=== PATIENT | female | born 1955 | race Hispanic/Latino ===

== ENCOUNTER 2018-06-02 16:22 | Inpatient (IN) | payer OTHER, SELFPAY ==
[2018-06-02] MEDS ORDERED: NA CHLORIDE 0.9% 500 ML ONE (18:02)
[2018-06-02] MEDS ORDERED: PANTOPRAZOLE 40 MG INJ ONE (18:02)
[2018-06-02 18:07] LABS: ALT/SGPT 15 U/L (12-78); AST/SGOT 19 U/L (15-37); Alkaline Phosphatase 56 U/L (45-117); BUN Blood Urea Nitrogen 43 mg/dL (7-18); Bicarbonate 17 mmol/L (21-32); Bilirubin Direct < 0.1 mg/dL (0-0.2); Bilirubin Total 0.2 mg/dL (0.2-1.0); Glucose Level 142 mg/dL (74-106); Lipase 152 U/L (73-393); Potassium 5.2 mmol/L (3.5-5.1); Protein, Total 5.8 g/dL (6.4-8.2); Sodium Level 143 mmol/L (136-145)
[2018-06-02 19:16] LABS: Absolute Lymphocytes (CBC) 0.7 K/uL (0.7-4.9); Absolute Monocytes 0.8 K/uL (0.1-1.3); Absolute Neutrophil 4.7 K/uL (1.8-8.0); Basophils % 0.6 % (0-1.3); Eosinophils % 0.3 % (0-4.4); Lymphocytes % 11.6 % (15.3-44.8); MPV 7.9 fL (7.6-11.3); Monocytes % 12.3 % (3.3-12.3); RBC Red Blood Cell Count 1.28 M/uL (3.86-4.86)
--- NOTE | 2018-06-02 19:25 | RAD REPORT ---
EXAM DESCRIPTION: CT - Abdomen Pelvis Wo Contrast - 06/02/2018 6:58 pm CLINICAL HISTORY: Abdominal pain hematochezia COMPARISON: None TECHNIQUE: Computed axial tomography of the abdomen and pelvis was obtained. IV and oral contrast we re not requested. All CT scans are performed using dose optimization technique as appropriate and may include automated exposure control or mA/KV adjustment according to patient size. FINDINGS: The evaluation of solid organs, vessels and bowel is limited secondary to the lack of con trast administration. A small bilateral pleural effusions are present. Mild bibasilar lung atelectasis A small to moderate pericardial effusion is seen The liver, spleen, pancreas, adrenals and kidneys appear grossly normal. The appendix is normal. There is no evidence of diverticulitis. The wall of the rectum is thickened A small amount ascites is seen. Diffuse edema is present within the subcutaneous tissues. IMPRESSION: Small to moderate bilateral pleural effusions Small to moderate pericardial effusion Anasarca Rectal wall thickening may indicate proctitis. A mass can also have this appearance.
--- NOTE | 2018-06-02 19:26 | RAD REPORT ---
EXAM DESCRIPTION: Cassi Single View06/02/2018 5:55 pm CLINICAL HISTORY: Shortness of breath COMPARISON: none FINDINGS: Small bilateral pleural effusions are present. The cardiac silhouette is moderately enlar ged. Mild bibasilar lung atelectasis
[2018-06-02 19:30] LABS: Protime INR 1.13
[2018-06-02] MEDS ORDERED: NA CHLORIDE 0.9% 1,000 ML ONE (19:30)
--- NOTE | 2018-06-02 20:05 | ER ---
Nurse's Notes [facility] Name: Yumiko Beruemn Age: 62 yrs Sex: Female : 1955 Arrival Date: 06/02/2018 Time: 16:26 Bed 5 Private MD: Diagnosis: Gastrointestinal hemorrhage, unspecified;Acute kidney failure;Influenza due to identified novel influenza A virus Presentation: 06/02 16:34 Presenting complaint: Patient states: dark blood in stool with clots that began 1-2 aa5 weeks ago. Pt reports SOB and generalized weakness that began 1-2 weeks ago. Pt also reports cough that began 4 days ago. Pt appears pale. Transition of care: patient was not received from another setting of care. Onset of symptoms was April 2018. Risk Assessment: Do you want to hurt yourself or someone else? Patient reports no desire to harm self or others. Care prior to arrival: None. 16:34 Method Of Arrival: Wheelchair aa5 16:34 Acuity: RAFA 2 aa5 21:54 Initial Sepsis Screen: Does the patient meet any 2 criteria? RR > 20 per min. HR > 90 jd3 bpm. Yes Does the patient have a suspected source of infection? No. Patient's initial sepsis screen is negative. Historical: - Allergies: 16:37 No Known Allergies; aa5 - PMHx: 16:37 Diabetes - IDDM; Hypertension; Hyperlipidemia; aa5 - PSHx: 16:37 None; aa5 - Immunization history:: Pneumococcal vaccine is not up to date, Flu vaccine is not up to date. - Social history:: Smoking status: Patient/guardian denies using tobacco. - Ebola Screening: : No symptoms or risks identified at this time. Screenin:39 Abuse screen: Denies threats or abuse. Denies injuries from another. Nutritional aj screening: No deficits noted. Tuberculosis screening: No symptoms or risk factors identified. Fall Risk None identified. Assessment: 17:39 General: Appears in no apparent distress. comfortable, Behavior is calm, cooperative, aj appropriate for age. Pain: Denies pain. Neuro: Level of Consciousness is awake, alert, obeys commands, Oriented to person, place, time, situation. Respiratory: Airway is patent Respiratory effort is even, unlabored, Respiratory pattern is regular, symmetrical. Respiratory: Reports shortness of breath cough that is productive. GI: Abdomen is non-distended, obese. GI: Reports bloody stool. Derm: Skin is intact, is healthy with good turgor, Skin is pale. 19:28 Reassessment: Patient appears in no apparent distress at this time. No changes from jd3 previously documented assessment. Patient and/or family updated on plan of care and expected duration. Pain level reassessed. Patient is alert, oriented x 3, equal unlabored respirations, skin warm/dry/pink. 20:30 Reassessment: Patient appears in no apparent distress at this time. Patient and/or jd3 family updated on plan of care and expected duration. Pain level reassessed. Patient is alert, oriented x 3, equal unlabored respirations, skin warm/dry/pink. 21:10 Reassessment: blood transfusion started, see blood charting. jd3 21:52 Reassessment: Patient appears in no apparent distress at this time. Patient and/or jd3 family updated on plan of care and expected duration. Pain level reassessed. Patient is alert, oriented x 3, equal unlabored respirations, skin warm/dry/pink. 22:24 Reassessment: Patient appears in no apparent distress at this time. Patient and/or jd3 family updated on plan of care and expected duration. Pain level reassessed. Patient is alert, oriented x 3, equal unlabored respirations, skin warm/dry/pink. Vital Signs: 16:38 BP 147 / 67; Pulse 105; Resp 18 S; Temp 98.2(TE); Pulse Ox 98% on R/A; Weight 74.39 kg aa5 (R); Height 5 ft. 1 in. (154.94 cm) (R); Pain 0/10; 19:29 Pulse 105; Resp 23 S; Pulse Ox 98% on R/A; jd3 20:27 BP 139 / 54; Pulse 99; Resp 20; Pulse Ox 97% on R/A; mt 21:52 BP 188 / 86; Pulse 95; Resp 25 S; Temp 99.7(O); Pulse Ox 98% on R/A; jd3 16:38 Body Mass Index 30.99 (74.39 kg, 154.94 cm) aa5 ED Course: 16:26 Patient arrived in ED. rg4 16:34 Arm band placed on. aa5 16:37 Triage completed. aa5 16:40 [facility] Blackburn [facility]. pm1 16:40 Terrell Carter MD is Attending Physician. pm1 16:56 Radiology exam delayed due to lab results not completed at this time. (BUN/Creatinine). vm2 17:00 Emily Davis, RN is Primary Nurse. aj 17:26 Radiology exam delayed due to lab results not completed at this time. (BUN/Creatinine). vm2 17:38 Radiology exam delayed due to lab results not completed at this time. (BUN/Creatinine). vm2 17:39 Patient has correct armband on for positive identification. aj 17:39 Inserted saline lock: 20 gauge in right forearm, using aseptic technique. Blood aj collected. 17:56 Chest Single View XRAY In Process Unspecified. EDMS 17:59 EKG done, by client technical professional. reviewed by Irvin Blackburn NP. sm3 18:05 Radiology exam delayed due to lab results not completed at this time. (BUN/Creatinine). vm2 18:58 CT completed. Patient tolerated procedure well. Patient moved back from CT. vm2 18:58 Abdomen In Process Unspecified. EDMS 19:33 Primary Nurse role handed off by Emily Davis, YONG jd3 19:33 Manjinder Alejandre RN is Primary Nurse. jd3 20:04 Alvaro Jeffries MD is Hospitalizing Provider. pm1 21:54 No provider procedures requiring assistance completed. Patient admitted, IV remains in jd3 place. Administered Medications: 17:50 CANCELLED (Physician Discretion): ProTONIX 40 mg PO once pm1 17:55 Drug: NS 0.9% 500 ml Route: IV; Rate: bolus; Site: right forearm; bp 19:00 Follow up: Response: No adverse reaction; IV Status: Completed infusion jd3 17:55 Drug: ProTONIX 40 mg Route: IVP; Site: right forearm; bp 19:00 Follow up: Response: No adverse reaction jd3 19:28 Drug: NS 0.9% 1000 ml Route: IV; Rate: 150 ml/hr; Site: right forearm; jd3 21:55 Follow up: Response: No adverse reaction; IV Status: Order to discontinue infusion; jd3 infusion paused for blood administration. 20:57 Drug: Tylenol 1000 mg Route: PO; jd3 21:54 Follow up: Response: No adverse reaction jd3 Outcome: 20:05 Decision to Hospitalize by Provider. pm1 22:23 Admitted to ICU accompanied by nurse, accompanied by tech, via stretcher, room 1, on jd3 monitor, with chart, Report called to Donnell BEACH 22:23 Condition: stable 22:23 Instructed on the need for admit, Demonstrated understanding of instructions. 22:24 Patient left the ED. jd3 Signatures: Dispatcher [employer] EDMS Emily Davis RN RN Jewels Barry RN RN aa5 Irvin Blackburn NP CONTRACT NEGOTIATOR pm1 Marii Schmid rg4 Shavonne Sousa 2 Rosalinda Clark mt, Jonathon, RN RN jd3 Beau Balderas RN Mary Xie 3 Corrections: (The following items were deleted from the chart) 19:33 19:29 Pulse 111bpm; Resp 25bpm; Spontaneous; Pulse Ox 98% RA; jd3 jd3
--- NOTE | 2018-06-02 20:06 | EDPHYS ---
Physician Documentation [facility] Name: Yumiko Berumen Age: 62 yrs Sex: Female : 1955 Arrival Date: 06/02/2018 Time: 16:26 Bed 5 Private MD: ED Physician Terrell Carter HPI: 06/02 17:00 This 62 yrs old Female presents to ER via Wheelchair with complaints of Bloody pm1 Stools, Breathing Difficulty. 17:00 The patient presents to the emergency department with rectal bleeding, dark red blood pm1 with bowel movement 4 times per day for the past 2 weeks. Onset: The symptoms/episode began/occurred 2 week(s) ago. Abdominal pain: none is appreciated. Modifying factors: The symptoms are alleviated by nothing, the symptoms are aggravated by nothing. Associated signs and symptoms: Pertinent positives: fever, shortness of breath, cough, Pertinent negatives: chest pain. Severity of symptoms: in the emergency department the symptoms are worse. The patient has not experienced similar symptoms in the past. The patient has not recently seen a physician, the patient's primary care provider is Dr. Dr. Rivera. Historical: - Allergies: 16:37 No Known Allergies; aa5 - PMHx: 16:37 Diabetes - IDDM; Hypertension; Hyperlipidemia; aa5 - PSHx: 16:37 None; aa5 - Immunization history:: Pneumococcal vaccine is not up to date, Flu vaccine is not up to date. - Social history:: Smoking status: Patient/guardian denies using tobacco. - Ebola Screening: : No symptoms or risks identified at this time. ROS: 17:00 Constitutional: Negative for fever, chills, and weight loss, Eyes: Negative for injury, pm1 pain, redness, and discharge, ENT: Negative for injury, pain, and discharge, Neck: Negative for injury, pain, and swelling, Cardiovascular: Negative for chest pain, palpitations, and edema, Back: Negative for injury and pain. 17:00 : Negative for injury, bleeding, discharge, and swelling, MS/Extremity: Negative for injury and deformity, Skin: Negative for injury, rash, and discoloration, Neuro: Negative for headache, weakness, numbness, tingling, and seizure. 17:00 Respiratory: Positive for cough, shortness of breath, Negative for wheezing. 17:00 Abdomen/GI: Positive for black/tarry stool, rectal bleeding, Negative for abdominal pain, nausea, vomiting, and diarrhea. Exam: 18:31 Constitutional: This is a well developed, well nourished patient who is awake, alert, pm1 and in no acute distress. Head/Face: Normocephalic, atraumatic. ENT: Nares patent. No nasal discharge, no septal abnormalities noted. Tympanic membranes are normal and external auditory canals are clear. Oropharynx with no redness, swelling, or masses, exudates, or evidence of obstruction, uvula midline. Mucous membranes moist. Neck: Trachea midline, no thyromegaly or masses palpated, and no cervical lymphadenopathy. Supple, full range of motion without nuchal rigidity, or vertebral point tenderness. No Meningismus. Chest/axilla: Normal chest wall appearance and motion. Nontender with no deformity. No lesions are appreciated. Cardiovascular: Regular rate and rhythm with a normal S1 and S2. No gallops, murmurs, or rubs. Normal PMI, no JVD. No pulse deficits. Respiratory: Lungs have equal breath sounds bilaterally, clear to auscultation and percussion. No rales, rhonchi or wheezes noted. No increased work of breathing, no retractions or nasal flaring. 18:31 Back: No spinal tenderness. No costovertebral tenderness. Full range of motion. 18:31 MS/ Extremity: Pulses equal, no cyanosis. Neurovascular intact. Full, normal range of motion. 18:31 Eyes: Periorbital structures: appear normal, Pupils: no acute changes, Extraocular movements: no acute changes, Conjunctiva: pale, Sclera: no appreciated abnormality, no acute changes. 18:31 Abdomen/GI: Inspection: obese Bowel sounds: normal, in all quadrants, Palpation: abdomen is soft and non-tender, in all quadrants, Rectal exam: rectal tone normal, Stool: guaiac positive, maroon, hemorrhoid(s), are not appreciated, external, tenderness, is not appreciated, Emily BEACH. 18:31 Skin: Appearance: normal except for affected area, Color: pale. 18:31 Neuro: Orientation: is normal, Motor: is normal, moves all fours. Vital Signs: 16:38 BP 147 / 67; Pulse 105; Resp 18 S; Temp 98.2(TE); Pulse Ox 98% on R/A; Weight 74.39 kg aa5 (R); Height 5 ft. 1 in. (154.94 cm) (R); Pain 0/10; 19:29 Pulse 105; Resp 23 S; Pulse Ox 98% on R/A; jd3 20:27 BP 139 / 54; Pulse 99; Resp 20; Pulse Ox 97% on R/A; mt 21:52 BP 188 / 86; Pulse 95; Resp 25 S; Temp 99.7(O); Pulse Ox 98% on R/A; jd3 16:38 Body Mass Index 30.99 (74.39 kg, 154.94 cm) aa5 MDM: 16:40 Patient medically screened. pm1 19:50 Physician consultation: Alvaro Jeffries MD was called at 19:50, was contacted at 19:50, pm1 regarding admission, patient's condition, would like consultation with Dr. Dr. Miller. 19:50 Data reviewed: vital signs. Data interpreted: Pulse oximetry: on room air is 98 %. pm1 Interpretation: normal. 19:57 Physician consultation: Michele Miller MD was called at 19:57, was contacted at 19:57, pm1 regarding consult, patient's condition, and will see patient tomorrow, Was not able to talk to Dr. Miller. Discussed case with his PA Kaylynn who said that she will discuss the case with him and that he will see the patient tomorrow morning. . 06/02 16:52 Order name: Type And Screen pm1 06/02 16:52 Order name: Basic Metabolic Panel; Complete Time: 18:27 pm06/02 16:52 Order name: CBC with Diff; Complete Time: 19:30 pm06/02 16:52 Order name: Creatinine for Radiology; Complete Time: 18:27 pm1 06/02 16:52 Order name: Hepatic Function; Complete Time: 18:27 pm1 06/02 16:52 Order name: Lipase; Complete Time: 18:27 pm1 06/02 16:52 Order name: Protime (+inr); Complete Time: 19:52 pm1 06/02 16:52 Order name: Ptt, Activated; Complete Time: 19:52 pm1 06/02 17:26 Order name: Procalcitonin; Complete Time: 19:16 pm1 06/02 17:26 Order name: Lactate; Complete Time: 18:27 pm1 06/02 17:26 Order name: Blood Culture Adult (2) pm1 06/02 17:31 Order name: Occult Blood--Ancillary bd 06/02 17:32 Order name: Flu; Complete Time: 19:16 pm1 06/02 17:33 Order name: [place] Screen Profile; Complete Time: 19:52 pm1 06/02 16:52 Order name: IV Saline Lock; Complete Time: 17:49 pm1 06/02 16:52 Order name: Labs collected and sent; Complete Time: 17:49 pm1 06/02 16:52 Order name: Chest Single View XRAY; Complete Time: 19:30 pm1 06/02 16:52 Order name: EKG; Complete Time: 16:53 pm1 06/02 16:52 Order name: EKG - Nurse/Tech; Complete Time: 17:49 pm1 06/02 18:42 Order name: Abdomen ; Complete Time: 19:30 EDMS 06/02 19:08 Order name: ABO/RH no charge; Complete Time: 19:16 EDMS 06/02 20:00 Order name: ABO rpt EDMS 06/02 20:00 Order name: Packed RBCs (Additional Unit) EDMS 06/02 18:11 Order name: Labs - recollect needed; Complete Time: 19:07 bd Administered Medications: 17:50 CANCELLED (Physician Discretion): ProTONIX 40 mg PO once pm1 17:55 Drug: NS 0.9% 500 ml Route: IV; Rate: bolus; Site: right forearm; bp 19:00 Follow up: Response: No adverse reaction; IV Status: Completed infusion jd3 17:55 Drug: ProTONIX 40 mg Route: IVP; Site: right forearm; bp 19:00 Follow up: Response: No adverse reaction jd3 19:28 Drug: NS 0.9% 1000 ml Route: IV; Rate: 150 ml/hr; Site: right forearm; jd3 21:55 Follow up: Response: No adverse reaction; IV Status: Order to discontinue infusion; jd3 infusion paused for blood administration. 20:57 Drug: Tylenol 1000 mg Route: PO; jd3 21:54 Follow up: Response: No adverse reaction jd3 Disposition: 06/02/18 20:05 Hospitalization ordered by Alvaro Jeffries for Inpatient Admission. Preliminary diagnosis are Gastrointestinal hemorrhage, unspecified, Acute kidney failure, Influenza due to identified novel influenza A virus. - Bed requested for Intensive Care Unit. - Status is Inpatient Admission. jd3 - Condition is Stable. - Problem is new. - Symptoms have improved. UTI on Admission? No Addendum: 06/05/2018 07:18 Co-signature as Attending Physician, Terrell Carter MD. r n Signatures: Dispatcher [employer] [facility] Ana Luisa Rodriguez Terrell Carter MD MD rn Calderon, Jweels, RN RN aa5 Ree Schmid RN RN cg Irvin Blackburn, CUSTOM HOME INSTALLER CUSTOM HOME INSTALLER pm1 Manjinder Alejandre RN RN jd3 Beau Balderas RN RN bp Corrections: (The following items were deleted from the chart) 06/02 17:50 17:32 ProTONIX 40 mg PO once ordered. pm1 pm1 18:42 16:53 Abdomen Pelvis W Con+CT.RAD.BRZ ordered. [facility] EDMI 21:47 20:05 Hospitalization Ordered by Alvaro Jeffries MD for Inpatient Admission. Preliminary cg diagnosis is Gastrointestinal hemorrhage, unspecified; Acute kidney failure; Influenza due to identified novel influenza A virus. Bed requested for Intensive Care Unit. Status is Inpatient Admission. Condition is Stable. Problem is new. Symptoms have improved. UTI on Admission? No. pm1 22:24 21:47 06/02/2018 20:05 Hospitalization Ordered by Alvaro Jeffries MD for Inpatient jd3 Admission. Preliminary diagnosis is Gastrointestinal hemorrhage, unspecified; Acute kidney failure; Influenza due to identified novel influenza A virus. Bed requested for Intensive Care Unit. Status is Inpatient Admission. Condition is Stable. Problem is new. Symptoms have improved. UTI on Admission? No. cg
[2018-06-02] MEDS ORDERED: ACETAMINOPHEN 500 MG TAB ONE (21:05)
[2018-06-02] MEDS ORDERED: ONDANSETRON 4 MG/2 ML VIAL IV PRN (21:55)
[2018-06-02] MEDS ORDERED: ALBUTEROL 2.5 MG/3 ML NEB SOL NEB PRN (21:55)
[2018-06-02] MEDS ORDERED: ACETAMINOPHEN 500 MG TAB PO PRN (21:55)
[2018-06-02] MEDS ORDERED: IPRATROPIUM BROM 0.5MG/2.5ML NEB PRN (21:55)
[2018-06-02] MEDS ORDERED: SODIUM CHLORIDE 0.9% 10ML INJ IV PRN (21:55)
--- NOTE | 2018-06-02 22:57 | P.HP ---
Certification for Inpatient Patient admitted to: Inpatient With expected LOS: >2 Midnights Practitioner: I am a practitioner with admitting privileges, knowledge of patient current condition, hospital course, and medical plan of care. Services: Services provided to patient in accordance with Admission requirements found in Title 42 Section 412.3 of the Code of Federal Regulations Patient History Date of Service: 06/02/18 Reason for admission: GIB History of Present Illness: Ms Berumen is a 62 years old woman with history of Diabetes mellitus II, HTN, CKD , Dyslipidemia, who start about 3 month ago with progressive weakness. Since 2 weeks ago, she start with dry cough and SOB. She also noticed dark bloody stools mixed with clots. She denied fever, or chills. No nausea, vomiting or abdominal pain. Her daughter says that she was gradually becoming more pale in the last few days. Today, the patient start feeling dizzy and more lethargic. Also more SOB as well. Lab work remarkable for normal WBC count, Hgb 3.4, Creatinine 7.1, normal lactate but elevated procalcitonin. CT abd/pelvis remarkable for possible proctitis, and ascites. Also bilateral pleural effusion and mild to moderate pericardial effusion. Allergies No Known Allergies Allergy (Unverified 06/02/18 21:05) Home medications list reviewed: Yes - Past Medical/Surgical History Has patient received pneumonia vaccine in the past: No Diabetic: Yes -: IDDM -: HTN -: hyperlipidemia -: Hysterectomy - Family History Mother -: Hypertension, Kidney disease Father -: Diabetes, Cancer - Social History Smoking Status: Former smoker Alcohol use: No CD- Drugs: No Caffeine use: Yes Place of Residence: Home Review of Systems 10-point ROS is otherwise unremarkable Physical Examination - Vital Signs Temperature: 99.4 F Blood Pressure: 169/83 Pulse: 97 Respirations: 26 Pulse Ox (%): 94 - Physical Exam General: Alert, In no apparent distress, Other (pale) HEENT: Atraumatic, PERRLA, Mucous membr. moist/pink, EOMI, Sclerae nonicteric Neck: Supple, 2+ carotid pulse no bruit, No LAD, Without JVD or thyroid abnormality Respiratory: Diminished, Crackles/rales (bilateral crackles) Cardiovascular: Regular rate/rhythm, Normal S1 S2 Gastrointestinal: Normal bowel sounds, No tenderness Musculoskeletal: No tenderness Integumentary: No rashes Neurological: Normal speech, Normal strength at 5/5 x4 extr, Normal tone, Normal affect Lymphatics: No axilla or inguinal lymphadenopathy - Studies Laboratory Data (last 24 hrs) 06/02/18 19:04: PT 13.4 H, INR 1.13, APTT 27.3 06/02/18 19:04: WBC 6.2, Hgb 3.4 L*, Hct 11.0 L*, Plt Count 216 06/02/18 17:21: Creatinine 7.14 H* 06/02/18 17:21: Sodium 143, Potassium 5.2 H, BUN 43 H, Creatinine 7.10 H*, Glucose 142 H, Total Bilirubin 0.2, AST 19, ALT 15, Alkaline Phosphatase 56, Lipase 152 Microbiology Data (last 24 hrs): 06/02/18 18:15 Nasopharnyx Influenza Type A Antigen Screen - Final 06/02/18 18:15 Nasopharnyx Influenza Type B Antigen Screen - Final 06/02/18 17:31 Stool Occult Blood - Final Assessment and Plan - Problems (Diagnosis) (1) Acute blood loss anemia Current Visit: Yes Status: Acute (2) GIB (gastrointestinal bleeding) Current Visit: Yes Status: Acute Qualifiers: GI bleed type/associated pathology: unspecified gastrointestinal hemorrhage type Qualified Code(s): K92.2 - Gastrointestinal hemorrhage, unspecified (3) Acute kidney injury superimposed on CKD Current Visit: Yes Status: Acute (4) Diabetes mellitus Current Visit: Yes Status: Acute Qualifiers: Diabetes mellitus type: type 2 Diabetes mellitus alf insulin use: with continuous churn buttermaker use Diabetes mellitus complication status: with unspecified complications Qualified Code(s): E11.8 - Type 2 diabetes mellitus with unspecified complications; Z79.4 - MCFP (current) use of insulin (5) HTN (hypertension) Current Visit: Yes Status: Acute Qualifiers: Hypertension type: essential hypertension Qualified Code(s): I10 - Essential (primary) hypertension - Plan Will admit the patient to ICU for close monitoring due to acute anemia secondary to GIB. Will transfuse at least [address] Miller and Dr Rivera. - Advance Directives Does patient have a Living Will: No Does patient have a Durable POA for Healthcare: No - Code Status/Comfort Care Code Status Assessed: Yes Code Status: Full Code
[2018-06-02] MEDS ORDERED: CEFTRIAXONE 1 GM/NS 50 ML 1 GM/50 ML BAG IV SCH (23:00)
[2018-06-02] MEDS ORDERED: CEFTRIAXONE/SWI 1gm 1 GM/10 ML SYR ONE (23:22)
[2018-06-02] MEDS ORDERED: AZITHROMYCIN IV 500 MG in NA CHLORIDE 0.9% 250 ML IVPB SCH (23:30)
[2018-06-02] MEDS ORDERED: AZITHROMYCIN 500 MG/250 ML BAG ONE (23:36)
[2018-06-03] MEDS ORDERED: NA CHLORIDE 0.9% 250 ML ONE ×2 (00:39→06:33)
[2018-06-03 05:34] LABS: Absolute Lymphocytes (CBC) 0.9 K/uL (0.7-4.9); Absolute Monocytes 0.6 K/uL (0.1-1.3); Absolute Neutrophil 4.5 K/uL (1.8-8.0); Basophils % 0.5 % (0-1.3); Eosinophils % 1.2 % (0-4.4); Lymphocytes % 14.9 % (15.3-44.8); MPV 7.9 fL (7.6-11.3); Monocytes % 10.3 % (3.3-12.3); RBC Red Blood Cell Count 1.98 M/uL (3.86-4.86)
[2018-06-03 05:41] LABS: Hematocrit 16.7 % (36.0-45.0)
[2018-06-03 05:59] LABS: Potassium 5.1 mmol/L (3.5-5.1)
[2018-06-03 06:00] LABS: Magnesium 1.4 mg/dL (1.8-2.4)
[2018-06-03] MEDS: INSULIN -REGULAR HUMAN 50 UNIT/0.5 ML ML SQ SCH ×5 (06:00→23:37)
[2018-06-03] MEDS ORDERED: MAGNESIUM SULFATE 1 gm IVPB 1 GM/100 ML BAG IV ONE ×2 (07:00→12:00)
[2018-06-03] MEDS ORDERED: FUROSEMIDE 20 MG/ 2ML VIAL IV ONE ×2 (07:20→11:00)
[2018-06-03] MEDS ORDERED: FUROSEMIDE 20 MG/ 2ML VIAL ONE (07:36)
--- NOTE | 2018-06-03 08:10 | EKG ---
Test Date: 2018-05-02 Test Time: 17:48:49 Seismic Prospecting Observer: SIENNA MEASUREMENT RESULTS: Intervals: Rate: 100 PA: 142 QRSD: 68 QT: 346 QTc: 446 [place]: P: 28 PA: 142 QRS: 12 T: 47 INTERPRETIVE STATEMENTS: Normal sinus rhythm Low voltage QRS Cannot rule out Anterior infarct, age undetermined Abnormal ECG No previous ECG available for comparison Electronically Signed On 06-03-18 08:08:50 WIND ENERGY TECHNICIAN by Baldomero [place]
--- NOTE | 2018-06-03 08:17 | RAD REPORT ---
EXAM DESCRIPTION: RAD - Chest Single View - 06/03/2018 8:00 am CLINICAL HISTORY: Influenza, wheezing, shortness of breath COMPARISON: June 02 TECHNIQUE: AP portable chest image was obtained [id number] hours . FINDINGS: Lung volumes are low. No new focal mass or consolidation. Vasculature, lung markings and h eart remain prominent. Findings are slightly worse in the right upper lobe. Trachea is midline. No me asurable pleural effusion and no pneumothorax. No acute bony abnormality seen. No acute aortic findin gs suspected. IMPRESSION: Heart, vasculature and lung markings all remain prominent, slightly worse in the right u pper lobe. This could be infectious edema pattern or CHF/volume overload.
[2018-06-03] MEDS ORDERED: FUROSEMIDE 40 MG TABLET PO ONE (08:57)
[2018-06-03] MEDS ORDERED: FUROSEMIDE 100 MG/10 ML VIAL IV ONE ×3 (09:00→18:14)
[2018-06-03] MEDS: PANTOPRAZOLE 40 MG INJ IVP SCH ×2 (09:14→20:56)
[2018-06-03] MEDS: OSELTAMIVIR PHOSPHATE 30 MG/5 ML SUSPENSION UD PO SCH (11:24)
[2018-06-03] MEDS ORDERED: INFLUENZA VACCINE (for 3y+) 0.5 ML DOSE IMVAC ONE (12:00)
[2018-06-03 13:53] LABS: Hematocrit 20.8 % (36.0-45.0)
[2018-06-03] MEDS ORDERED: NA CHLORIDE 0.9% 100 ML ONE (15:11)
--- NOTE | 2018-06-03 16:24 | PN ---
Date of Progress Note: 06/03/2018 Subjective: The patient is seen and examined. Chart reviewed and case discussed with RN and Dr. Miller. The patient is primarily Kyrgyz speaking. Daughter is at the bedside. The patient does appear to be in some respiratory distress, complains of some difficulty of breathing. Medications: List reviewed. Physical Examination: Vital Signs: Temperature 100, heart rate 107, blood pressure 175/86, respirations 32, and O2 of 100% on 2 L via nasal cannula. General: Awake, alert, and oriented x3, elderly female, ill appearing, obese, BMI 32.7. CV: S1 and S2, sinus tachycardia. Peripheral pulses present bilaterally. Respiratory: Diminished breath sounds. Crackles heard throughout. Rhonchi present. The patient is tachypneic, use of accessory muscle was present. Gastrointestinal: Abdomen is soft, nontender, and nondistended. Positive bowel sounds. No guarding, no rigidity. Extremities: No clubbing or cyanosis. The patient does have pedal edema. No calf tenderness. Neurologic: Cranial nerves 2 through 12 intact grossly. No focal neurological deficit. Speech is normal. Skin: No rashes. Normal skin turgor. Laboratory Data: Sodium 145, potassium 5.1, chloride 118, CO2 of 20, BUN 44, creatinine 7.15, glucose 101, calcium 6.3, and magnesium 1.4. WBC 6.1, H and H of 5.4 and 16.7, platelets 190, neutrophils 73%. Blood cultures pending. Influenza screen shows flu A protein antigen positive. Chest x-ray personally reviewed, shows heart vasculature and lung markings all remain prominent, slightly worse in the right upper lobe, could be infectious edema pattern or CHF volume overload. Assessment And Plan: A 62-year-old female with, 1. Acute gastrointestinal bleed, likely lower source, at this time not a candidate for intervention due to her respiratory status. I appreciate Dr. Miller's input. 2. Acute blood loss anemia. The patient has been transfused 3 units total, awaiting 4th unit. We will give Lasix in between each unit. Continue to monitor H and H. Unknown baseline. We will need to get records from previous visit or from PCP. 3. Acute respiratory distress. The patient is on supplemental oxygen at this time, likely due to volume overload. We will diurese with Lasix. 4. Vsuhi-wq-dlesxag kidney injury, stage 5. The patient has been needing dialysis, however, has not accepted dialysis as of yet. Dr. Rivera is on the case, may need to proceed with dialysis depending on her status. 5. Hypocalcemia. Replace and monitor. 6. Diabetes mellitus type 2 with long-term use of insulin with chronic kidney disease. We will continue with sliding scale insulin. Resume long-acting insulin and monitor Accu-Cheks. 7. Essential hypertension, uncontrolled. We will resume home medications. 8. Obesity, BMI of 32.7. 9. Hyperkalemia, corrected. 10. Hypokalemia. We will replace and monitor. 11. Influenza: tamiflu renally dosed. PLAN: Continue to monitor in ICU setting. Overall, guarded prognosis. /YAJAIRA Voice ID: [id number] Report ID: [id number] JUAN LUIS
[2018-06-03] MEDS ORDERED: D50W 25 GM/50 ML SYRINGE IV PRN (18:14)
[2018-06-03] MEDS ORDERED: GLUCAGON 1 MG/VIAL IM PRN (18:14)
[2018-06-03] MEDS: AZITHROMYCIN IV 500 MG in NA CHLORIDE 0.9% 250 ML IVPB SCH (20:57)
[2018-06-03] MEDS: ATORVASTATIN 10 MG TAB PO SCH (20:57)
[2018-06-03] MEDS: CEFTRIAXONE/SWI 1gm 1 GM/10 ML SYR IV SCH (20:57)
[2018-06-03] MEDS: METOPROLOL TAR 50 MG TAB PO SCH (20:57)
[2018-06-03] MEDS: INSULIN GLARGINE 100 UNITS/ML SQ SCH (20:57)
[2018-06-03] MEDS: TERAZOSIN HCL 5 MG CAP PO SCH (20:58)
[2018-06-03] MEDS ORDERED: AZITHROMYCIN IV 500 MG in NA CHLORIDE 0.9% 250 ML IVPB SCH (23:00)
[2018-06-04 03:59] LABS: Absolute Lymphocytes (CBC) 0.9 K/uL (0.7-4.9); Absolute Monocytes 0.6 K/uL (0.1-1.3); Absolute Neutrophil 6.8 K/uL (1.8-8.0); Basophils % 0.4 % (0-1.3); Eosinophils % 0.4 % (0-4.4); Hematocrit 24.2 % (36.0-45.0); MPV 8.3 fL (7.6-11.3); Monocytes % 7.3 % (3.3-12.3); RBC Red Blood Cell Count 2.83 M/uL (3.86-4.86)
[2018-06-04 04:33] LABS: Albumin 1.6 g/dL (3.4-5.0); Bilirubin Total 0.2 mg/dL (0.2-1.0); Phosphorus 7.9 mg/dL (2.5-4.9); Potassium 4.8 mmol/L (3.5-5.1); Protein, Total 5.1 g/dL (6.4-8.2); Uric Acid 6.2 mg/dL (2.6-6.0)
[2018-06-04 05:00] LABS: Magnesium 1.8 mg/dL (1.8-2.4)
[2018-06-04] MEDS ORDERED: MAGNESIUM SULFATE 1 gm IVPB 1 GM/100 ML BAG IV ONE (05:05)
[2018-06-04 05:28] LABS: Urine Appearance CLEAR; Urine Bilirubin NEGATIVE (NEG); Urine Blood 2+ (NEG); Urine Color YELLOW; Urine Glucose TRACE (NEG); Urine Protein 3+ (NEG); Urine Urobilinogen 0.2 mg/dL (0.2-1.0)
[2018-06-04 05:45] LABS: Urine Bacteria <20 /HPF (<20); Urine Culture Reflex Order REFLEXED; Urine RBC <5 /HPF (NONE SEEN)
[2018-06-04] MEDS: INSULIN -REGULAR HUMAN 50 UNIT/0.5 ML ML SQ SCH ×3 (05:55→21:00)
[2018-06-04] MEDS: OSELTAMIVIR PHOSPHATE 30 MG/5 ML SUSPENSION UD PO SCH (09:00)
[2018-06-04] MEDS: TERAZOSIN HCL 5 MG CAP PO SCH ×2 (09:45→21:31)
[2018-06-04] MEDS: METOPROLOL TAR 50 MG TAB PO SCH ×2 (09:45→21:31)
[2018-06-04] MEDS: PANTOPRAZOLE 40 MG INJ IVP SCH ×2 (09:46→21:30)
[2018-06-04 12:09] LABS: Hematocrit 24.3 % (36.0-45.0)
--- NOTE | 2018-06-04 16:18 | EKG ---
Test Date: 2018-06-04 Test Time: 09:50:48 Real Estate Listing Consultant: DUDLEY MEASUREMENT RESULTS: Intervals: Rate: 70 DC: 130 QRSD: 78 QT: 416 QTc: 449 [place]: P: 44 DC: 130 QRS: 3 T: 39 INTERPRETIVE STATEMENTS: Normal sinus rhythm Low voltage QRS Cannot rule out Anterior infarct, age undetermined Abnormal ECG Compared to ECG 05/02/2018 17:48:49 No significant changes Electronically Signed On 06-04-18 16:17:03 DRYING ROOM OPERATOR by Baldomero Dover
[2018-06-04] MEDS ORDERED: GLUCAGON 1 MG/VIAL IM PRN (16:44)
[2018-06-04] MEDS: FUROSEMIDE 40 MG/4 ML VIAL IV SCH (17:09)
--- NOTE | 2018-06-04 17:39 | PN ---
Date of Progress Note: 06/04/2018 Subjective: The patient was seen and examined. Chart reviewed and case discussed with RN and Dr. Mansoor lewis and Dr. Miller. The patient is still in some respiratory distress. Not a candidate for anes thesia and colonoscopy at this time. The patient's bleeding has improved. Medications: List reviewed. Physical Examination: Vital Signs: Temperature 98, heart rate 60, blood pressure 113/58, respirations 16, O2 100% on 2 L v ia nasal cannula. General: Awake, alert, oriented x3. Ill-appearing female, obese, BMI 31. CV: S1, S2. Regular rate and rhythm. Peripheral pulses present. Respiratory: Diminished breath sounds. Crackles heard. No use of accessory muscles. Gastrointestinal: Abdomen is soft, nontender, nondistended. Positive bowel sounds. Extremities: No clubbing or cyanosis. The patient has 2+ edema in bilateral lower extremities. Neuro: Nonfocal. Laboratory Data: Sodium 148, potassium 4.8, chloride 118, CO2 20, BUN 46, creatinine 7.53, calcium 6 .7, phosphorus 7.9, albumin 1.6. WBC pending earlier results showed 7.9, 24.2, WBC 8.4. Blood cultu res, no growth to date. Assessment And Plan: A 62-year-old female with: 1.Acute gastrointestinal bleed, likely lower source. Unable to do colonoscopy due to her respirator y status secondary to influenza. We will continue to monitor. Bleeding has slowed down. GI on boar d. 2.Acute blood loss anemia. Transfused total of 4 units. We will continue to monitor H and H second marnie to above. 3.Acute respiratory distress. Continue supplemental oxygen secondary to volume overload. Continue diuretics with Lasix. 4.Kmkqt-al-qocnwiv kidney injury, stage 5. The patient is not able to be started on dialysis as of yet due to social issues. We will discuss with Case Management. Appreciate Nephrology input. The p atient is still making urine. We will monitor electrolytes and creatinine. Avoid NSAIDs. 5.Hypocalcemia. We will replace and monitor. 6.Influenza. Continue Tamiflu, renally dose. 7.Diabetes mellitus type 2 with long-term use of insulin with chronic kidney disease, stage 5. We w ill continue sliding scale insulin and monitor blood glucose levels. 8.Essential hypertension, not well controlled. We will resume home medications and monitor. 9.Obesity, BMI 32.7. 10.Severe protein-calorie malnutrition. Albumin 1.6. We will need protein supplementation. 11.Hyperkalemia, corrected. Continue to monitor. 12.Hyperphosphatemia. We will continue to monitor. Plan: Continue IV diuretics, monitor in ICU setting, need to discuss discharge planning and possibil ity of dialysis with Case Management as the patient is unfunded and undocumented. /YAJAIRA Voice ID: [id number] Report ID: [id number]
[2018-06-04] MEDS: CEFTRIAXONE/SWI 1gm 1 GM/10 ML SYR IV SCH (21:30)
[2018-06-04] MEDS: AZITHROMYCIN IV 500 MG in NA CHLORIDE 0.9% 250 ML IVPB SCH (21:30)
[2018-06-04] MEDS: ATORVASTATIN 10 MG TAB PO SCH (21:31)
[2018-06-04] MEDS: INSULIN GLARGINE 100 UNITS/ML SQ SCH (22:09)
--- NOTE | 2018-06-04 23:57 | P.CNS ---
Date of Consult: 06/03/18 Reason for Consult: ANGELA/ CKD V Requesting Physician: Otis Bustos Chief Complaint: GIB History of Present Illness: Ms Berumen is a 62 years old woman with history of Diabetes mellitus II, HTN, CKD , Dyslipidemia, who start about 3 month ago with progressive weakness. Since 2 weeks ago, she start with dry cough and SOB. She also noticed dark bloody stools mixed with clots. She denied fever, or chills. No nausea, vomiting or abdominal pain. Her daughter says that she was gradually becoming more pale in the last few days. Today, the patient start feeling dizzy and more lethargic. Also more SOB as well. Lab work remarkable for normal WBC count, Hgb 3.4, Creatinine 7.1, normal lactate but elevated procalcitonin. CT abd/pelvis remarkable for possible proctitis, and ascites. Also bilateral pleural effusion and mild to moderate pericardial effusion. 17:00 This 62 yrs old Female presents to ER via Wheelchair with complaints of Bloody pm1 Stools, Breathing Difficulty. 17:00 The patient presents to the emergency department with rectal bleeding, dark red blood pm1 with bowel movement 4 times per day for the past 2 weeks. Onset: The symptoms/episode began/occurred 2 week(s) ago. Abdominal pain: none is appreciated. Modifying factors: The symptoms are alleviated by nothing, the symptoms are aggravated by nothing. Associated signs and symptoms: Pertinent positives: fever, shortness of breath, cough, Pertinent negatives: chest pain. Severity of symptoms: in the emergency department the symptoms are worse. The patient has not experienced similar symptoms in the past. The patient has not recently seen a physician, the patient's field sales manager is Dr. Dr. Rivera. Allergies No Known Allergies Allergy (Unverified 06/02/18 21:05) Home medications list reviewed: Yes Home Medications: Aspirin [Aspirin EC 81 MG] 81 mg PO DAILY 06/03/18 Insulin Glargine,Hum.rec.anlog [Lantus] 10 unit SQ BEDTIME 06/03/18 Metoprolol Tartrate 100 mg PO BID 06/03/18 Pravastatin Sodium 40 mg PO BEDTIME 06/03/18 Terazosin HCl 5 mg PO BID 06/03/18 - Past Medical/Surgical History Diabetic: Yes -: IDDM -: HTN -: hyperlipidemia -: Hysterectomy - Family History Mother Medical History: Hypertension, Kidney disease Father Medical History: Diabetes, Cancer - Social History Alcohol use: No CD- Drugs: No Caffeine use: Yes Place of Residence: Home Review of Systems 10-point ROS is otherwise unremarkable General: Weakness, Malaise Respiratory: SOB with Excertion Cardiovascular: Edema Gastrointestinal: Melena Neurological: Weakness Physical Examination Temp Pulse Resp BP Pulse Ox 97.6 F 74 17 147/71 H 99 06/04/18 20:00 06/04/18 21:31 06/04/18 20:00 06/04/18 21:31 06/04/18 20:00 General: Oriented x3, Cooperative, Mild distress HEENT: Atraumatic, Mucous membr. moist/pink Neck: Supple, JVD distended Respiratory: Diminished, Crackles/rales Cardiovascular: Regular rate/rhythm, No rubs, Edema Gastrointestinal: Soft and benign, Non-distended Musculoskeletal: No clubbing, No contractures Integumentary: No rashes, No cyanosis Blood work reviewed in the chart. Imagings Data: Imaging reviewed in the chart. Conclusions/Impression: A/ ANGELA likely progressive CKD. CKD V with proteinuria. Acidosis. Hypocalcemia. HyperPO4. DM II with CKD. HTN with CKD/ CHF. Diastolic CHF, A/C. Hypoalbuminemia. Anemia in chronic illness/ multifactorial. GI Bleed. P/ Continue current POC and Medications. Give high dose Lasix to improve volume status. PRBCs as ordered for anemia. Give Procrit. Follow up with GI for GI bleed. No NSAIDs. AM labs. Daily weight. Will initiate HD as needed but will proceed cautiously due to the lack of outpt support. Case discussed with Dr. Bustos. Thank you kindly for the consultation.
[2018-06-05] MEDS: FUROSEMIDE 40 MG/4 ML VIAL IV SCH ×3 (01:14→16:28)
[2018-06-05 07:18] LABS: Albumin 1.6 g/dL (3.4-5.0); Bilirubin Total 0.1 mg/dL (0.2-1.0); Magnesium 2.1 mg/dL (1.8-2.4)
[2018-06-05] MEDS: INSULIN -REGULAR HUMAN 50 UNIT/0.5 ML ML SQ SCH ×4 (07:30→21:00)
[2018-06-05 09:00] LABS: Absolute Lymphocytes (CBC) 1.3 K/uL (0.7-4.9); Absolute Monocytes 0.6 K/uL (0.1-1.3); Absolute Neutrophil 6.6 K/uL (1.8-8.0); Basophils % 0.4 % (0-1.3); Eosinophils % 2.8 % (0-4.4); Hematocrit 26.6 % (36.0-45.0); Monocytes % 6.7 % (3.3-12.3); RBC Red Blood Cell Count 3.08 M/uL (3.86-4.86)
[2018-06-05] MEDS: METOPROLOL TAR 50 MG TAB PO SCH ×2 (10:12→21:56)
[2018-06-05] MEDS: PANTOPRAZOLE 40 MG INJ IVP SCH ×2 (10:13→21:56)
[2018-06-05] MEDS: TERAZOSIN HCL 5 MG CAP PO SCH ×2 (10:13→21:57)
[2018-06-05] MEDS: OSELTAMIVIR PHOSPHATE 30 MG/5 ML SUSPENSION UD PO SCH (10:54)
--- NOTE | 2018-06-05 16:17 | PN ---
Date of Progress Note: 06/05/2018 Subjective: The patient seen and examined. Chart reviewed and case discussed with RN. The patient is requesting Khanna catheter to be removed. I explained to her that reason for Khanna catheter is for strict I's and O's as she is not very ambulatory to prevent falls. The patient will have a bedside commode and remove Khanna catheter. Medications: List reviewed. Physical Examination: Vital Signs: Temperature 97.2, heart rate 72, blood pressure 137/52, respirations 20, O2 95% on 2 L via nasal cannula. General: Awake, alert, and oriented x3 in some mild distress, ill-appearing female. Laboratory Data: Sodium 147, potassium 5, chloride 120, CO2 15, BUN 50, creatinine 8.13, glucose 92, calcium 6.7, albumin 1.6. WBC 8.9, H and H 8.6 and 26.6, platelets 215, neutrophils 75%. C. diff a ssay is pending. Blood cultures no growth to date. Assessment And Plan: A 62-year-old female with. 1.Acute gastrointestinal bleed, likely lower source. The patient is not stable enough for colonosco py per GI and anesthesia. She does need visualization of the colon to rule out malignancy as a sourc e of this bleeding. 2.Acute blood loss anemia, status post 4 units of transfusion. Continue to monitor H and H. 3.Acute respiratory distress. We will continue supplemental oxygen. Wean off as tolerated. Due to volume overload. Continue diuretics. 4.Acute on chronic kidney injury stage 5, not a candidate for dialysis at this time. We will monito r I's and O's and urine output closely. Avoid NSAIDs. Monitor creatinine and electrolytes. 5.Hypocalcemia. We will replace and monitor. 6.Severe protein-calorie malnutrition. Albumin 1.6. 7.Obesity, BMI 32.7. 8.Essential hypertension, not well controlled. 9.Influenza. Continue Tamiflu. 10.Diabetes mellitus type 2 with long-term use of insulin and chronic kidney disease stage 5. Juan David nue to monitor Accu-Cheks. 11.Hyperkalemia, corrected. 12.Hyperphosphatemia. Plan: The patient to be diuresed, remove Khanna catheter, bedside commode. Did discuss with Dr. Brit thomas concerning possible transfer, however, if her condition improves and the patient is able to have colonoscopy done next week may not need to be transferred due to her lack of funding and difficulty t allyn as it is. HILDA Voice ID: [id number] Report ID: [id number]
[2018-06-05] MEDS: AZITHROMYCIN IV 500 MG in NA CHLORIDE 0.9% 250 ML IVPB SCH (21:54)
[2018-06-05] MEDS: CEFTRIAXONE/SWI 1gm 1 GM/10 ML SYR IV SCH (21:55)
[2018-06-05] MEDS: INSULIN GLARGINE 100 UNITS/ML SQ SCH (21:55)
[2018-06-05] MEDS: ATORVASTATIN 10 MG TAB PO SCH (21:56)
[2018-06-06] MEDS: FUROSEMIDE 40 MG/4 ML VIAL IV SCH ×3 (01:14→17:28)
[2018-06-06 05:01] LABS: Absolute Lymphocytes (CBC) 1.4 K/uL (0.7-4.9); Absolute Monocytes 0.6 K/uL (0.1-1.3); Absolute Neutrophil 4.5 K/uL (1.8-8.0); Basophils % 0.5 % (0-1.3); Eosinophils % 4.4 % (0-4.4); Hematocrit 24.6 % (36.0-45.0); Lymphocytes % 20.9 % (15.3-44.8); MPV 8.1 fL (7.6-11.3); Monocytes % 8.2 % (3.3-12.3); RBC Red Blood Cell Count 2.83 M/uL (3.86-4.86)
[2018-06-06 05:51] LABS: Albumin 1.5 g/dL (3.4-5.0); Bilirubin Total 0.1 mg/dL (0.2-1.0); Potassium 4.3 mmol/L (3.5-5.1); Protein, Total 4.9 g/dL (6.4-8.2)
[2018-06-06] MEDS: INSULIN -REGULAR HUMAN 50 UNIT/0.5 ML ML SQ SCH ×4 (07:30→21:00)
[2018-06-06] MEDS: TERAZOSIN HCL 5 MG CAP PO SCH ×2 (08:22→21:13)
[2018-06-06] MEDS: PANTOPRAZOLE 40 MG INJ IVP SCH ×2 (08:26→21:13)
[2018-06-06] MEDS: METOPROLOL TAR 50 MG TAB PO SCH ×2 (08:26→21:13)
[2018-06-06] MEDS: OSELTAMIVIR PHOSPHATE 30 MG/5 ML SUSPENSION UD PO SCH (08:28)
[2018-06-06] MEDS: DIPHENOX/ATROP SULF 1 TAB PO PRN (19:22)
[2018-06-06] MEDS: AZITHROMYCIN IV 500 MG in NA CHLORIDE 0.9% 250 ML IVPB SCH (21:12)
[2018-06-06] MEDS: CEFTRIAXONE/SWI 1gm 1 GM/10 ML SYR IV SCH (21:12)
[2018-06-06] MEDS: ATORVASTATIN 10 MG TAB PO SCH (21:13)
[2018-06-06] MEDS: INSULIN GLARGINE 100 UNITS/ML SQ SCH (21:14)
--- NOTE | 2018-06-06 22:55 | PN ---
Date of Progress Note: 06/06/2018 Subjective: The patient is seen and examined. Chart reviewed and case discussed with RN. The patie nt overall doing well. Still having significant shortness of breath, not feeling very well. Medications: List reviewed. Physical Examination: Vital Signs: Temperature 97.7, heart rate 64, blood pressure 115/56, respirations 20, O2 95% on 2 L via nasal cannula. General: Awake, alert, and oriented x3. Some mild respiratory distress, ill-appearing female, obese , BMI 30. CV: S1, S2. Regular rate and rhythm. Peripheral pulses present. Respiratory: Diminished breath sounds. Crackles heard throughout. The patient is slightly tachypne ic. No use of accessory muscles. No stridor. Gastrointestinal: Abdomen is soft, nontender, nondistended. Positive bowel sounds. Extremities: No clubbing, cyanosis. The patient has peripheral edema. Neurologic: Nonfocal. Laboratory Data: Sodium 146, potassium 4.3, chloride 118, CO2 17, BUN 48, creatinine 8.2, glucose 87 , calcium 5.9, albumin 1.5. WBC 6.8, H and H 7.8 and 24.6, platelets 175. Hepatitis panel pending. Cultures are negative. C. diff assay is also negative. Assessment And Plan: A 62-year-old female with: 1.Acute gastrointestinal bleed, likely lower source. We will re-evaluate the patient in a.m. for an esthesia to undergo colonoscopy. The patient's respiratory status is improved mildly. She is no solomon wilfred requiring BiPAP and stable on nasal cannula. We will continue to monitor H and H. Appreciate Gregor Miller's input. 2.Acute blood loss anemia, status post 4 units of PRBCs. H and H did drop slightly today. Accordin g to the daughter, the bleeding has tapered off. We will monitor H and H and transfuse for hemoglobi n less than 7. Unable to do colonoscopy at this time. 3.Acute respiratory distress, improving. The patient now on nasal cannula secondary to volume overl oad. 4.Taylv-nt-mcyqofc kidney injury, stage 5, needs dialysis. However, due to social situation, unable to proceed at this time. If the patient's condition worsens, may have to proceed regardless. We wi ll continue to monitor creatinine and electrolytes. Avoid NSAIDs and nephrotoxins. Monitor urine ou tput closely. Appreciate Dr. Rivera's input. 5.Hypocalcemia. We will start on Rocaltrol. 6.Severe protein-calorie malnutrition. Albumin is less than 2. 7.Obesity, body mass index 32.7. 8.Essential hypertension, stable. 9.Influenza. Continue Tamiflu. 10.Diabetes mellitus type 2 with long-term use of insulin and chronic kidney disease, stage 5. We w ill continue to monitor Accu-Cheks. 11.Hyperkalemia, corrected. 12.Hyperphosphatemia. Plan: Reassess in a.m. for a possible colonoscopy and evaluate for dialysis versus possible transfer to tertiary level of care. /YAJAIRA Voice ID: [id number] Report ID: [id number]
[2018-06-07] MEDS: FUROSEMIDE 40 MG/4 ML VIAL IV SCH ×3 (01:00→16:36)
[2018-06-07] MEDS: DIPHENOX/ATROP SULF 1 TAB PO PRN (03:31)
[2018-06-07 06:07] LABS: Absolute Lymphocytes (CBC) 1.8 K/uL (0.7-4.9); Absolute Monocytes 0.5 K/uL (0.1-1.3); Absolute Neutrophil 3.1 K/uL (1.8-8.0); Basophils % 0.4 % (0-1.3); Eosinophils % 6.1 % (0-4.4); Hematocrit 23.6 % (36.0-45.0); MPV 7.9 fL (7.6-11.3); Monocytes % 9.3 % (3.3-12.3); RBC Red Blood Cell Count 2.72 M/uL (3.86-4.86)
[2018-06-07 06:33] LABS: Albumin 1.5 g/dL (3.4-5.0); Bilirubin Total 0.1 mg/dL (0.2-1.0); Potassium 4.3 mmol/L (3.5-5.1); Protein, Total 4.9 g/dL (6.4-8.2)
[2018-06-07] MEDS: INSULIN -REGULAR HUMAN 50 UNIT/0.5 ML ML SQ SCH ×4 (07:30→21:00)
[2018-06-07] MEDS: PANTOPRAZOLE 40 MG INJ IVP SCH ×2 (10:18→21:26)
[2018-06-07] MEDS: METOPROLOL TAR 50 MG TAB PO SCH ×2 (10:19→21:26)
[2018-06-07] MEDS: OSELTAMIVIR PHOSPHATE 30 MG/5 ML SUSPENSION UD PO SCH (10:19)
[2018-06-07] MEDS: TERAZOSIN HCL 5 MG CAP PO SCH ×2 (10:19→21:41)
[2018-06-07] MEDS ORDERED: BISACODYL E.C. 5 MG TAB PO ONE (14:27)
[2018-06-07] MEDS ORDERED: GOLYTELY 4000 ML PO SCH (15:00)
--- NOTE | 2018-06-07 16:15 | PN ---
Date of Progress Note: 06/07/2018 Subjective: The patient was seen and examined. Chart reviewed and case discussed with RN and Dr. Kelley ashley. The patient's breathing has improved significantly. Does appear to be stable enough for col onoscopy and EGD, will likely be scheduled in a.m. Medications: List reviewed. Physical Examination: Vital Signs: Temperature 97.8, heart rate 96, blood pressure 117/60, respirations 16, O2 100% on 2 L via nasal cannula. General: Awake, alert, oriented x3. No acute distress. Elderly female, obese. CV: S1, S2. Regular rate and rhythm. Peripheral pulses present. Respiratory: Diminished breath sounds. Some crackles heard. Otherwise, no stridor, no use of acces sherrill muscles. Gastrointestinal: Abdomen is soft, nontender, nondistended. Positive bowel sounds. Extremities: No clubbing, cyanosis. The patient has 2+ bilateral edema. Neurologic: Nonfocal. Laboratory Data: Sodium 145, potassium 4.3, chloride 118, CO2 17, BUN 44, creatinine 8.48, glucose 6 3, calcium 5.8, albumin is 1.5. WBC 5.8, H and H 7.8 and 23.6, platelets 178. Blood cultures, no gr owth to date. C. diff assay is negative. Urine culture shows no growth. Assessment And Plan: A 62-year-old female with: 1.Acute gastrointestinal bleed, likely lower source. The patient is much more stable now respirator y casiano to undergo colonoscopy and EGD. The patient has had very minimal stool with blood. Does have some rectal inflammation on CT, possibly mass, therefore needs colonoscopy. We will continue to mon itor H and H. GI on board. 2.Acute blood loss anemia, status post 4 units of PRBCs. H and H are stable. Bleeding has tapered off. Transfuse for hemoglobin less than 7. 3.Acute respiratory distress, improved significantly. The patient now on nasal cannula. This was s econdary to volume overload. 4.Iwnli-lk-kxomjuw kidney injury, stage 5, needs dialysis, however, unable to proceed this time due to her social situation. We will discuss further with Nephrology. At this point her electrolytes, h er potassium and her magnesium are acceptable. Continue to monitor closely and avoid NSAIDs and neph rotoxins. Urine output has been adequate. 5.Hypocalcemia. The patient has been started on Rocaltrol. Corrected calcium is around 7. 6.Severe protein-calorie malnutrition. Albumin is 1.5. 7.Obesity, BMI 32.7. 8.Essential hypertension, stable. 9.Influenza. We will continue Tamiflu. 10.Diabetes mellitus type 2 with long-term use of insulin and chronic kidney disease stage 5. Juan David nue to monitor Accu-Cheks. 11.Hyperkalemia, corrected. 12.Hyperphosphatemia, monitor. 13.Deep vein thrombosis prophylaxis with SCDs. No chemical anticoagulation due to bleed. Plan: Anticipate scope in raji STEVENS Voice ID: [id number] Report ID: [id number]
[2018-06-07] MEDS: INSULIN GLARGINE 100 UNITS/ML SQ SCH (21:00)
[2018-06-07] MEDS: AZITHROMYCIN IV 500 MG in NA CHLORIDE 0.9% 250 ML IVPB SCH (21:25)
[2018-06-07] MEDS: CEFTRIAXONE/SWI 1gm 1 GM/10 ML SYR IV SCH (21:25)
[2018-06-07] MEDS: SODIUM BICARB 325 MG TAB PO SCH (21:26)
[2018-06-07] MEDS: ATORVASTATIN 10 MG TAB PO SCH (21:26)
[2018-06-07] MEDS: CALCITROL 0.25 MCG CAP PO SCH (21:37)
[2018-06-08] MEDS: FUROSEMIDE 40 MG/4 ML VIAL IV SCH ×3 (01:14→17:57)
[2018-06-08 06:21] LABS: Absolute Lymphocytes (CBC) 1.6 K/uL (0.7-4.9); Absolute Monocytes 0.5 K/uL (0.1-1.3); Absolute Neutrophil 3.2 K/uL (1.8-8.0); Basophils % 0.5 % (0-1.3); Eosinophils % 6.4 % (0-4.4); Hematocrit 24.6 % (36.0-45.0); Lymphocytes % 27.6 % (15.3-44.8); Monocytes % 9.3 % (3.3-12.3); RBC Red Blood Cell Count 2.82 M/uL (3.86-4.86)
[2018-06-08 06:26] LABS: Albumin 1.6 g/dL (3.4-5.0); Bilirubin Total 0.2 mg/dL (0.2-1.0); Protein, Total 5.1 g/dL (6.4-8.2)
[2018-06-08] MEDS: TERAZOSIN HCL 5 MG CAP PO SCH ×2 (07:28→21:59)
[2018-06-08] MEDS: INSULIN -REGULAR HUMAN 50 UNIT/0.5 ML ML SQ SCH ×4 (07:28→21:00)
[2018-06-08] MEDS: SODIUM BICARB 325 MG TAB PO SCH ×2 (07:29→21:58)
[2018-06-08] MEDS: CALCITROL 0.25 MCG CAP PO SCH (07:29)
[2018-06-08] MEDS: D50W 25 GM/50 ML SYRINGE IV PRN ×2 (07:55→12:13)
[2018-06-08] MEDS: PANTOPRAZOLE 40 MG INJ IVP SCH ×2 (07:56→22:00)
[2018-06-08] MEDS: METOPROLOL TAR 50 MG TAB PO SCH ×2 (07:56→21:58)
[2018-06-08] MEDS ORDERED: FLEET ENEMA ADULT PR ONE (08:00)
[2018-06-08] MEDS ORDERED: LIDOCAINE 1% MPF 5 ML VIAL ONE (15:33)
[2018-06-08] MEDS ORDERED: PROPOFOL 200 MG/20 ML VIAL IV ONE (15:33)
[2018-06-08] MEDS ORDERED: NA CHLORIDE 0.9% 500 ML ONE (15:50)
[2018-06-08] MEDS: D50W 25 GM/50 ML SYRINGE IV ONE ×2 (15:50→15:55)
--- NOTE | 2018-06-08 16:19 | P.PN ---
Subjective Date of Service: 06/08/18 Chief Complaint: GIB Patient seen and examined at bedside with RN. Chart reviewed. Case discussed with GI. Currently awaiting colonoscopy this morning. Still continues to have bloody stool. H&H stable this morning. No complaints to offer. Review of Systems 10-point ROS is otherwise unremarkable Physical Examination - Vital Signs Temperature: 97.8 F Blood Pressure: 136/69 Pulse: 70 Respirations: 16 Pulse Ox (%): 98 - Physical Exam General: Alert, In no apparent distress HEENT: Atraumatic, PERRLA, EOMI Neck: Supple, JVD not distended Respiratory: Clear to auscultation bilaterally, Normal air movement Cardiovascular: Regular rate/rhythm, Normal S1 S2 Gastrointestinal: Normal bowel sounds, No tenderness Musculoskeletal: No tenderness Integumentary: No rashes Neurological: Normal speech, Normal tone, Normal affect Lymphatics: No axilla or inguinal lymphadenopathy - Studies Microbiology Data (last 24 hrs): 06/02/18 18:15 Blood - Blood Aerobic Blood Culture - Final No growth in 5 days. 06/02/18 18:15 Blood - Blood Anaerobic Blood Culture - Final No growth in 5 days. 06/02/18 17:39 Blood - Blood Aerobic Blood Culture - Final No growth in 5 days. 06/02/18 17:39 Blood - Blood Anaerobic Blood Culture - Final No growth in 5 days. Medications List Reviewed: Yes Assessment And Plan - Plan Assessment And Plan: 1. Acute gastrointestinal bleed, likely lower source. -H&H stable at this time. -GI consulted. Appreciated recommendations at this time. -patient hemodynamically stable now cleared for colonoscopy and EGD. -patient with abnormal CT finding with possibility of a mass versus rectal inflammation. -Currently on Protonix 2. Acute blood loss anemia, status post 4 units of PRBCs. -H and H are stable. Transfuse for hemoglobin less than 7. -currently having minimal rectal bleeding. 3.Acute respiratory distress, improved significantly. -This was secondary to volume overload. -Now resolved. 4.Jgwzk-iq-aeabvnd kidney injury, stage 5 -nephrology consulted. Appreciated recommendations at this time -needs dialysis, however, unable to proceed this time due to her social situation. -Continue to monitor closely and avoid NSAIDs and nephrotoxins. -Urine output and electrolyte imbalance has been adequate. 5.Hypocalcemia. -The patient has been started on Rocaltrol. Corrected calcium is around 7. 6.Severe protein-calorie malnutrition. -Albumin is 1.5. 7.Obesity, BMI 32.7. 8.Essential hypertension, stable 9.Influenza. We will continue Tamiflu. 10.Diabetes mellitus type 2 with long-term use of insulin and chronic kidney disease stage 5. -Continue to monitor Accu-Cheks. 11.Hyperkalemia, corrected. 12.Hyperphosphatemia, monitor. 13.Deep vein thrombosis prophylaxis with SCDs. No chemical anticoagulation due to bleed. Plan: Currently pending clinical improvement at this time. Will await colonoscopy result. Will follow up with GI for further recommendations. Discharge Plan: Home Plan to discharge in: 48 Hours - Code Status/Comfort Care Code Status Assessed: Yes Critical Care: No
[2018-06-08] MEDS: OSELTAMIVIR 75 MG CAP PO SCH (17:57)
[2018-06-08] MEDS: INSULIN GLARGINE 100 UNITS/ML SQ SCH (21:57)
[2018-06-08] MEDS: ATORVASTATIN 10 MG TAB PO SCH (21:59)
[2018-06-09] MEDS: FUROSEMIDE 40 MG/4 ML VIAL IV SCH ×3 (00:27→17:40)
[2018-06-09 05:07] LABS: HBsAG Nonreactive (Nonreactive)
[2018-06-09 06:24] LABS: Absolute Lymphocytes (CBC) 1.4 K/uL (0.7-4.9); Absolute Monocytes 0.6 K/uL (0.1-1.3); Absolute Neutrophil 4.1 K/uL (1.8-8.0); Basophils % 0.5 % (0-1.3); Hematocrit 24.9 % (36.0-45.0); Lymphocytes % 22.8 % (15.3-44.8); Monocytes % 8.9 % (3.3-12.3)
[2018-06-09] MEDS: INSULIN -REGULAR HUMAN 50 UNIT/0.5 ML ML SQ SCH ×4 (07:30→21:00)
[2018-06-09 08:03] LABS: Albumin 1.6 g/dL (3.4-5.0); Bilirubin Total 0.1 mg/dL (0.2-1.0); Magnesium 1.6 mg/dL (1.8-2.4); Potassium 3.5 mmol/L (3.5-5.1); Protein, Total 5.3 g/dL (6.4-8.2)
[2018-06-09] MEDS: TERAZOSIN HCL 5 MG CAP PO SCH ×2 (09:02→22:11)
[2018-06-09] MEDS: PANTOPRAZOLE 40 MG INJ IVP SCH ×2 (09:02→22:10)
[2018-06-09] MEDS: METOPROLOL TAR 50 MG TAB PO SCH ×2 (09:02→22:10)
[2018-06-09] MEDS: SODIUM BICARB 325 MG TAB PO SCH ×2 (09:02→22:12)
[2018-06-09] MEDS: CALCITROL 0.25 MCG CAP PO SCH (09:02)
[2018-06-09] MEDS: OSELTAMIVIR 75 MG CAP PO SCH ×2 (09:02→22:11)
[2018-06-09] MEDS ORDERED: POTASSIUM CL SA 10 MEQ TAB PO ONE (12:00)
[2018-06-09] MEDS ORDERED: MAGNESIUM SULFATE 1 gm IVPB 1 GM/100 ML BAG IV ONE (12:00)
--- NOTE | 2018-06-09 16:50 | P.PN ---
Subjective Date of Service: 06/09/18 Chief Complaint: GIB Patient seen and examined at bedside with RN. Chart reviewed. Case discussed with GI. Colonoscopy done yesterday. Consistent with like rectal ulcerative mass. Patient will require colorectal surgeon for mass resection. Request to [facility] to transfer the patient there for further care. Review of Systems 10-point ROS is otherwise unremarkable Physical Examination - Vital Signs Temperature: 97.5 F Blood Pressure: 130/64 Pulse: 66 Respirations: 18 Pulse Ox (%): 96 - Physical Exam General: Alert, In no apparent distress HEENT: Atraumatic, PERRLA, EOMI Neck: Supple, JVD not distended Respiratory: Clear to auscultation bilaterally, Normal air movement Cardiovascular: Regular rate/rhythm, Normal S1 S2 Gastrointestinal: Normal bowel sounds, No tenderness Musculoskeletal: No tenderness Integumentary: No rashes Neurological: Normal speech, Normal tone, Normal affect Lymphatics: No axilla or inguinal lymphadenopathy - Studies Medications List Reviewed: Yes Assessment And Plan - Plan Assessment And Plan: 1. Acute gastrointestinal bleed, 2.2 to Rectal Mass -H&H stable at this time. 8.1 today -GI consulted. Appreciated recommendations at this time. 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 Acute blood loss anemia, status post 4 units of PRBCs. -H and H are stable. Transfuse for hemoglobin less than 7. -currently having rectal bleeding. 3.Acute respiratory distress 2.2 to Volume Overload -Now resolved. 4.Obfrw-if-hxrefxi kidney injury, stage 5 -nephrology consulted. Appreciated recommendations at this time -needs dialysis, however, unable to proceed this time due to her social situation. -Continue to monitor closely and avoid NSAIDs and nephrotoxins. -Urine output and electrolyte imbalance has been adequate. 5.Hypocalcemia. -The patient has been started on Rocaltrol. Corrected calcium is around 7. 6.Severe protein-calorie malnutrition. -Albumin is 1.5. 7.Obesity, BMI 32.7. 8.Essential hypertension, stable 9.Influenza. We will continue Tamiflu. 10.Diabetes mellitus type 2 with long-term use of insulin and chronic kidney disease stage 5. -Continue to monitor Accu-Cheks. 11.Hyperkalemia, corrected. 12.Hyperphosphatemia, monitor. 13.Deep vein thrombosis prophylaxis with SCDs. No chemical anticoagulation due to bleed. Plan: Currently pending transfer to the tertiary center for further care of her rectal mass. Discharge Plan: Other Plan to discharge in: 48 Hours - Code Status/Comfort Care Code Status Assessed: Yes Critical Care: No
[2018-06-09] MEDS: INSULIN GLARGINE 100 UNITS/ML SQ SCH (22:08)
[2018-06-09] MEDS: DIPHENOX/ATROP SULF 1 TAB PO PRN (22:10)
[2018-06-09] MEDS: ATORVASTATIN 10 MG TAB PO SCH (22:10)
[2018-06-10] MEDS: FUROSEMIDE 40 MG/4 ML VIAL IV SCH ×3 (00:12→17:20)
[2018-06-10 05:54] LABS: Absolute Lymphocytes (CBC) 2.3 K/uL (0.7-4.9); Absolute Monocytes 0.6 K/uL (0.1-1.3); Absolute Neutrophil 4.2 K/uL (1.8-8.0); Basophils % 0.4 % (0-1.3); Eosinophils % 5.2 % (0-4.4); Hematocrit 24.2 % (36.0-45.0); Lymphocytes % 30.8 % (15.3-44.8); MPV 8.2 fL (7.6-11.3); Monocytes % 8.1 % (3.3-12.3); RBC Red Blood Cell Count 2.81 M/uL (3.86-4.86)
[2018-06-10 06:16] LABS: Magnesium 1.9 mg/dL (1.8-2.4); Potassium 3.6 mmol/L (3.5-5.1)
--- NOTE | 2018-06-10 06:27 | OP ---
Surgeon: Michele Miller MD Procedures To Be Performed: Upper endoscopy and colonoscopy. Performing Physician: Michele Miller M.D. Indication For Procedure: Anemia and rectal bleeding. Plan For Anesthesia: Monitored anesthesia care. Complexity: High due to the patient's comorbidities, recent influenza. Technique: After obtaining informed consent from the patient and explaining risks and complications which include but are not limited to bleeding, infection, perforation, and anesthesia complication, p atient was placed in the left lateral position and sedation was given. Subsequently, the scope was f irst introduced into the mouth and carefully guided up till the third portion of the duodenum. No ev idence of active bleeding seen. After completion of the upper examination, the scope and equipment w ere withdrawn and the upper endoscopy was terminated in a safe manner. Findings: Esophagus: No gross lesion seen in the entire esophagus. Stomach: Mild, patchy erythema seen in the body and antrum. Biopsies taken. Duodenum: The bulb, second and third portion appeared normal. Small bowel: Biopsies taken for the anemia to rule out celiac disease. Procedure #2: Colonoscopy: After completion of the upper endoscopy, the patient was turned and a colonoscopy was performed. A d igital rectal exam was performed and subsequently the scope was inserted into the rectum and carefull y guided up till the cecum. The cecum was identified by the ileocecal valve and appendiceal orifice. Subsequently, the scope was gradually withdrawn while carefully examining the mucosa. Scope withdr awal time was 15 minutes. Quality of prep was fair. Findings: In the ascending colon, 2 sessile polyps from 1 to 1.5 cm in size were seen. These were r esected with snare polypectomy and retrieved. In the transverse colon, a 5 mm polyp was seen. This was removed by hot biopsy. In the descending colon, a 4 mm sessile polyp was seen. This was removed with hot biopsy. In the sigmoid, a 1.5 cm sessile polyp was seen. This was removed with snare poly pectomy. In the rectum, around 3-4 cm from the top of the dentate line, an ulcerated lesion was seen . The ulcer was around 2.5 x 3 cm in dimension. Around the ulcer, the margins were very heaped up a nd hypertrophied. Multiple sites of oozing blood were seen from this ulcer. Multiple biopsies taken from the margins as well as from the base of the ulcer. These findings highly suspicious of maligna ncy. Complications: None. Tolerance To Anesthesia: Excellent. Postoperative Diagnosis: For the upper, gastritis. For the colon; multiple polyps, rectal ulcer, po ssible mass, rule out malignancy. Plan: 1.Await pathology results. 2.Based on current findings, surgical intervention would be recommended. This was discussed with Dr Binh Banegas. I also informed the family of the findings and the further plan of care. Recall GI if need ed. US/MODL Voice ID: [id number] Report ID: [id number]
[2018-06-10] MEDS: INSULIN -REGULAR HUMAN 50 UNIT/0.5 ML ML SQ SCH ×4 (07:30→20:20)
[2018-06-10] MEDS: METOPROLOL TAR 50 MG TAB PO SCH ×2 (09:01→20:50)
[2018-06-10] MEDS: CALCITROL 0.25 MCG CAP PO SCH (09:02)
[2018-06-10] MEDS: SODIUM BICARB 325 MG TAB PO SCH ×2 (09:02→20:48)
[2018-06-10] MEDS: OSELTAMIVIR 75 MG CAP PO SCH ×2 (09:03→20:50)
[2018-06-10] MEDS: PANTOPRAZOLE 40 MG INJ IVP SCH ×2 (09:03→20:49)
[2018-06-10] MEDS: TERAZOSIN HCL 5 MG CAP PO SCH ×2 (09:03→20:50)
--- NOTE | 2018-06-10 15:34 | P.PN ---
Subjective Date of Service: 06/10/18 Chief Complaint: GIB Patient seen and examined at bedside with RN. Chart reviewed. Case discussed with GI. Colonoscopy done. Consistent with like rectal ulcerative mass. Patient will require colorectal surgeon for mass resection. Request to [facility] to transfer the patient there for further care. nephrology also contacted for possible Dialysis since Kidneys not improving Review of Systems 10-point ROS is otherwise unremarkable Physical Examination - Vital Signs Temperature: 97.7 F Blood Pressure: 113/63 Pulse: 66 Respirations: 18 Pulse Ox (%): 97 - Physical Exam General: Alert, In no apparent distress HEENT: Atraumatic, PERRLA, EOMI Neck: Supple, JVD not distended Respiratory: Clear to auscultation bilaterally, Normal air movement Cardiovascular: Regular rate/rhythm, Normal S1 S2 Gastrointestinal: Normal bowel sounds, No tenderness Musculoskeletal: No tenderness Integumentary: No rashes Neurological: Normal speech, Normal tone, Normal affect Lymphatics: No axilla or inguinal lymphadenopathy - Studies Medications List Reviewed: Yes Assessment And Plan - Plan Assessment And Plan: 1. Acute gastrointestinal bleed, 2.2 to Rectal Mass -H&H stable at this time. 7.8 today -GI consulted. Appreciated recommendations at this time. 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 Acute blood loss anemia, status post 4 units of PRBCs. -H and H are stable. Transfuse for hemoglobin less than 7. -currently having rectal bleeding. 3.Acute respiratory distress 2.2 to Volume Overload -Now resolved. 4.Jfaaz-fo-apscwtg kidney injury, stage 5 -nephrology consulted. Appreciated recommendations at this time -needs dialysis, however, unable to proceed this time due to her social situation. -Will F.u again today -Continue to monitor closely and avoid NSAIDs and nephrotoxins. -Urine output and electrolyte imbalance has been adequate. 5.Hypocalcemia. -The patient has been started on Rocaltrol. Corrected calcium is around 7. 6.Severe protein-calorie malnutrition. -Albumin is 1.5. 7.Obesity, BMI 32.7. 8.Essential hypertension, stable 9.Influenza. We will continue Tamiflu. 10.Diabetes mellitus type 2 with long-term use of insulin and chronic kidney disease stage 5. -Continue to monitor Accu-Cheks. 11.Hyperkalemia, corrected. 12.Hyperphosphatemia, monitor. 13.Deep vein thrombosis prophylaxis with SCDs. No chemical anticoagulation due to bleed. Plan: Currently pending transfer to the tertiary center for further care of her rectal mass. Discharge Plan: Other Plan to discharge in: 48 Hours - Code Status/Comfort Care Code Status Assessed: Yes Critical Care: No
[2018-06-10] MEDS: DIPHENOX/ATROP SULF 1 TAB PO PRN (15:48)
--- NOTE | 2018-06-10 17:07 | P.DS ---
Admission Date: 06/02/18 Discharge Date: 06/10/18 Reason for Admission: GIB Consultations: GI Procedures: EGD and Colonoscopy - Problems (1) Rectal mass Current Visit: Yes Status: Acute (2) Rectal bleeding Current Visit: Yes Status: Acute (3) Acute blood loss anemia Onset Date: 06/03/18 Current Visit: Yes Status: Acute (4) Acute kidney injury superimposed on CKD Onset Date: 06/03/18 Current Visit: Yes Status: Acute (5) Diabetes mellitus Onset Date: 06/03/18 Current Visit: Yes Status: Acute Qualifiers: Diabetes mellitus type: type 2 Diabetes mellitus termite renewal inspector insulin use: with termite renewal inspector use Diabetes mellitus complication status: with unspecified complications Qualified Code(s): E11.8 - Type 2 diabetes mellitus with unspecified complications; Z79.4 - termite renewal inspector (current) use of insulin (6) HTN (hypertension) Onset Date: 06/03/18 Current Visit: Yes Status: Acute Qualifiers: Hypertension type: essential hypertension Qualified Code(s): I10 - Essential (primary) hypertension Brief History of Present Illness: Ms Berumen is a 62 years old woman with history of Diabetes mellitus II, HTN, CKD , Dyslipidemia, who start about 3 month ago with progressive weakness. Since 2 weeks ago, she start with dry cough and SOB. She also noticed dark bloody stools mixed with clots. She denied fever, or chills. No nausea, vomiting or abdominal pain. Her daughter says that she was gradually becoming more pale in the last few days. Today, the patient start feeling dizzy and more lethargic. Also more SOB as well. Lab work remarkable for normal WBC count, Hgb 3.4, Creatinine 7.1, normal lactate but elevated procalcitonin. CT abd/pelvis remarkable for possible proctitis, and ascites. Also bilateral pleural effusion and mild to moderate pericardial effusion. Hospital Course: Overall during the hospital stay patient remained stable Patient was initially admitted to the hospital for lower GI bleeding more precisely rectal bleeding. GI was consulted. Patient had a EGD and colonoscopy done here in the hospital. Patient was placed on Protonix. Anti coagulation was stopped. EGD was within normal limits. Colonoscopy was consistent with several polyps that were removed along with a rectal mass which was 3-4 inches above the dentate line. Mass was also rated in nature. Tissue biopsy was done. Acting at this time. However given indication and the p.r.n. mass GI was highly suspicious of rectal cancer. Patient was thus referred over to tertiary care center for further treatment of the rectal mass. Patient was accepted at [facility] by the colorectal surgeon there for possible surgical resection of the rectal mass will await pathology report as well at this time. GI agreed with the plan. Further while here in the hospital patient also had acute blood loss anemia most likely secondary to rectal bleeding. Patient was continues to bleed while here in the hospital even after the colonoscopy was done. Patient's hemoglobin was monitored here closely. Was transfused every time her hemoglobin was less than 7. While here in the hospital patient also had acute on chronic kidney disease. No signs of uremia at this time. Nephrology was consulted. Who recommended the patient can hold off on getting dialysis that she is not uremic and still making urine at this time. BUN and creatinine remained around a while here in the hospital. Patient also is in a difficult social situation which is going to make her followup with the dialysis center hard and thus nephrology thought that that would be best for patient to be observed closely unless she develops acute worsening of her kidney failure or uremic or any other side affects from acute kidney injury. While here in the hospital patient also was positive for influenza A and was treated with Tamiflu. Patient was transferred to the tertiary center for further care. Vital Signs/Physical Exam: Temp Pulse Resp BP Pulse Ox 97.7 F 66 18 113/63 97 06/10/18 15:34 06/10/18 15:34 06/10/18 15:34 06/10/18 15:34 06/10/18 15:34 General: Alert, In no apparent distress HEENT: Atraumatic, PERRLA, EOMI Neck: Supple, JVD not distended Respiratory: Clear to auscultation bilaterally, Normal air movement Cardiovascular: Regular rate/rhythm, Normal S1 S2 Gastrointestinal: Normal bowel sounds, No tenderness Musculoskeletal: No tenderness Integumentary: No rashes Neurological: Normal speech, Normal tone, Normal affect Lymphatics: No axilla or inguinal lymphadenopathy Laboratory Data at Discharge: WBC 7.5 K/uL (4.3-10.9) D 06/10/18 05:28 Hgb 7.9 g/dL (12.0-15.0) L* 06/10/18 05:28 Hct 24.2 % (36.0-45.0) L 06/10/18 05:28 Plt Count 225 K/uL (152-406) 06/10/18 05:28 PT 13.4 SECONDS (9.5-12.5) H 06/02/18 19:04 INR 1.13 06/02/18 19:04 APTT 27.3 SECONDS (24.3-36.9) 06/02/18 19:04 Sodium 146 mmol/L (136-145) H 06/10/18 05:28 Potassium 3.6 mmol/L (3.5-5.1) 06/10/18 05:28 BUN 44 mg/dL (7-18) H 06/10/18 05:28 Creatinine 8.85 mg/dL (0.55-1.3) H* 06/10/18 05:28 Glucose 59 mg/dL (74-106) L 06/10/18 05:28 Uric Acid 6.2 mg/dL (2.6-6.0) H 06/04/18 03:19 Phosphorus 7.9 mg/dL (2.5-4.9) H 06/04/18 03:19 Magnesium 1.9 mg/dL (1.8-2.4) 06/10/18 05:28 Total Bilirubin 0.1 mg/dL (0.2-1.0) L 06/09/18 06:52 AST 15 U/L (15-37) 06/09/18 06:52 ALT 13 U/L (12-78) 06/09/18 06:52 Alkaline Phosphatase 54 U/L (45-117) 06/09/18 06:52 Lipase 152 U/L (73-393) 06/02/18 17:21 Home Medications: Aspirin [Aspirin EC 81 MG] 81 mg PO DAILY 06/03/18 Insulin Glargine,Hum.rec.anlog [Lantus] 10 unit SQ BEDTIME 06/03/18 Metoprolol Tartrate 100 mg PO BID 06/03/18 Pravastatin Sodium 40 mg PO BEDTIME 06/03/18 Terazosin HCl 5 mg PO BID 06/03/18
[2018-06-10] MEDS: INSULIN GLARGINE 100 UNITS/ML SQ SCH (20:29)
[2018-06-10] MEDS: ATORVASTATIN 10 MG TAB PO SCH (20:50)
== END 2018-06-10 21:39 | disposition short-term general hospital (02) | DRG 377 ==
LOC: ER 16:22 → 3RD-ICU 21:44 → 2ND 06-04 18:00
PROVIDERS: ADMIT Internal Medicine
PROC: 30233N1 Transfusion of Nonautologous Red Blood Cells into Peripheral Vein, Percutaneous Approach (ICD-10-PCS; principal; 2018-06-02)
PROC: 5A09457 Assistance with Respiratory Ventilation, 24-96 Consecutive Hours, Continuous Positive Airway Pressure (ICD-10-PCS; 2018-06-02)
PROC: 0DB68ZX Excision of Stomach, Via Natural or Artificial Opening Endoscopic, Diagnostic (ICD-10-PCS; 2018-06-08)
PROC: 0DB88ZX Excision of Small Intestine, Via Natural or Artificial Opening Endoscopic, Diagnostic (ICD-10-PCS; 2018-06-08)
PROC: 0DB78ZX Excision of Stomach, Pylorus, Via Natural or Artificial Opening Endoscopic, Diagnostic (ICD-10-PCS; 2018-06-08)
PROC: 0DBK8ZX Excision of Ascending Colon, Via Natural or Artificial Opening Endoscopic, Diagnostic (ICD-10-PCS; 2018-06-08)
PROC: 0DBL8ZX Excision of Transverse Colon, Via Natural or Artificial Opening Endoscopic, Diagnostic (ICD-10-PCS; 2018-06-08)
PROC: 0DBN8ZX Excision of Sigmoid Colon, Via Natural or Artificial Opening Endoscopic, Diagnostic (ICD-10-PCS; 2018-06-08)
PROC: 0DBM8ZX Excision of Descending Colon, Via Natural or Artificial Opening Endoscopic, Diagnostic (ICD-10-PCS; 2018-06-08)
PROC: 0DBP8ZX Excision of Rectum, Via Natural or Artificial Opening Endoscopic, Diagnostic (ICD-10-PCS; 2018-06-08)
DX: K62.5 Hemorrhage of anus and rectum (principal); E43 Unspecified severe protein-calorie malnutrition; I50.33 Acute on chronic diastolic (congestive) heart failure; D62 Acute posthemorrhagic anemia; N17.9 Acute kidney failure, unspecified; N18.5 Chronic kidney disease, stage 5; J90 Pleural effusion, not elsewhere classified; I31.3 Pericardial effusion (noninflammatory); E87.2 Acidosis; I13.2 Hypertensive heart and chronic kidney disease with heart failure and with stage 5 chronic kidney disease, or end stage renal disease; K62.6 Ulcer of anus and rectum; E11.8 Type 2 diabetes mellitus with unspecified complications; Z79.4 Long term (current) use of insulin; E78.5 Hyperlipidemia, unspecified; J09.X2 Influenza due to identified novel influenza A virus with other respiratory manifestations; Z87.891 Personal history of nicotine dependence; R06.03 Acute respiratory distress; E11.22 Type 2 diabetes mellitus with diabetic chronic kidney disease; E83.51 Hypocalcemia; E66.9 Obesity, unspecified; Z68.32 Body mass index [BMI] 32.0-32.9, adult; E87.5 Hyperkalemia; E87.6 Hypokalemia; E83.39 Other disorders of phosphorus metabolism; R80.9 Proteinuria, unspecified; D63.8 Anemia in other chronic diseases classified elsewhere; K63.5 Polyp of colon; K29.70 Gastritis, unspecified, without bleeding
CPT/HCPCS: 36415; 71045; 74176; 80048; 80053; 80076; 81001; 82043; 82272; 82570; 82962; 83605; 83690; 83735; 84100; 84132; 84145; 84550; 85014; 85018; 85025; 85610; 85730; 86308; 86705; 86706; 86850; 86900; 86901; 87040; 87086; 87088; 87340; 87493; 87804; 88305; 88312; 93005; 94760; 96361; 96374; 99285; C9113; G9035; J0456; J0696; J1940; J2405; J2704; J3475; J7030; P9016

== ENCOUNTER 2018-08-08 22:50 | Emergency (ER) | payer OTHER ==
--- OUTSIDE RECORDS SUMMARY | 2018-08-08 22:53 | XMS REPORT | Clinical Summary ---
:1955 Author Organization [facility] Address [address] [place] [address] Care Team Providers Name Role Phone Pcp, No Primary Care Provider Unavailable Allergies No Known Allergies Medications Medication Sig Dispensed Refills Start Date End Date Status aspirin 81 MG EC Take 81 mg by mouth 0 Active tablet daily. insulin glargine Inject 10 Units 0 Active (LANTUS) 100 subcutaneously unit/mL injection nightly Use as directed . metoprolol Take 100 mg by mouth 0 Active (TOPROL-XL) 100 MG 2 (two) times daily. 24 hr tablet pravastatin Take 40 mg by mouth 0 Active (PRAVACHOL) 40 MG daily. tablet terazosin (HYTRIN) Take 5 mg by mouth 0 Active 5 MG capsule nightly. Active Problems Problem Noted Date Rectal mass 06/11/2018 Encounters Date Type Specialty Care Team Description 06/11/2018 Travel 06/10/2018 - Hospital Encounter General [facility], CKD (chronic kidney disease) stage 5, GFR less than 15 ml/min ([facility]); 06/18/2018 Medicine Ehsan Sarkar, Essential hypertension; Iron deficiency anemia due to chronic blood loss; Metabolic acidosis; Rectal ulcer; Acute blood loss anemia; Rectal mass after 08/07/2017 Social History Tobacco Use Types Packs/Day Years Used Date Former Smoker Alcohol Use Drinks/Week oz/Week Comments No Alcohol Habits Answer Date Recorded How often do you have a drink containing alcohol? Never 06/11/2018 How many drinks containing alcohol do you have on a typical Not asked day when you are drinking? How often do you have six or more drinks on one occasion? Not asked Sex Assigned at Date Recorded Not on file Job Start Date Occupation Industry Not on file Not on file Not on file Travel History Travel Start Travel End No recent travel history available. Last Filed Vital Signs Vital Sign Reading Time Taken Blood Pressure 113/70 06/18/2018 3:21 PM [employer] [employer] [facility] Pulse 99 06/18/2018 3:21 PM [employer] Temperature 36.4 C (97.5 F) 06/18/2018 3:21 PM [employer] Respiratory Rate 18 06/18/2018 3:21 PM [employer] Oxygen Saturation 97% 06/18/2018 3:21 PM [employer] Inhaled Oxygen Concentration - - Weight 67.1 kg (148 lb) 06/10/2018 11:29 PM [employer] Height 154.9 cm (5' 1") 06/10/2018 11:29 PM [employer] Body Mass Index 27.96 06/10/2018 11:29 PM [employer] Plan of Treatment Not on file Procedures Procedure Name Priority Date/Time Associated Comments Diagnosis POCT-GLUCOSE METER Routine 06/18/2018 12:33 Results for this PM [employer] procedure are in the results section. POCT-GLUCOSE METER Routine 06/18/2018 7:25 Results for this AM [employer] procedure are in the results section. CBC W/PLT COUNT & AUTO Routine 06/18/2018 5:41 Results for this DIFFERENTIAL AM [employer] procedure are in the results section. CBC W/PLT COUNT & AUTO Routine 06/18/2018 5:41 Results for this DIFFERENTIAL AM [employer] procedure are in the results section. POCT-GLUCOSE METER Routine 06/17/2018 9:35 Results for this PM [employer] procedure are in the results section. POCT-GLUCOSE METER Routine 06/17/2018 4:25 Results for this PM [employer] procedure are in the results section. POCT-GLUCOSE METER Routine 06/17/2018 12:40 Results for this PM [employer] procedure are in the results section. GI PATHOGEN PROFILE BY Routine 06/17/2018 12:15 Results for this PCR PM [employer] procedure are in the results section. BASIC METABOLIC PANEL Routine 06/17/2018 8:57 Results for this (7) AM [employer] procedure are in the results section. POCT-GLUCOSE METER Routine 06/17/2018 7:37 Results for this AM [employer] procedure are in the results section. CBC W/PLT COUNT & AUTO Routine 06/17/2018 5:43 Results for this DIFFERENTIAL AM [employer] procedure are in the results section. CBC W/PLT COUNT & AUTO Routine 06/17/2018 5:43 Results for this DIFFERENTIAL AM [employer] procedure are in the results section. POCT-GLUCOSE METER Routine 06/16/2018 8:58 Results for this PM [employer] procedure are in the results section. POCT-GLUCOSE METER Routine 06/16/2018 5:56 Results for this PM [employer] procedure are in the results section. C. DIFFICILE GDH TOXIN Routine 06/16/2018 2:50 Results for this PM [employer] procedure are in the results section. POCT-GLUCOSE METER Routine 06/16/2018 12:17 Results for this PM [employer] procedure are in the results section. POCT-GLUCOSE METER Routine 06/16/2018 7:53 Results for this AM [employer] procedure are in the results section. CBC W/PLT COUNT & AUTO Routine 06/16/2018 5:46 Results for this DIFFERENTIAL AM [employer] procedure are in the results section. BASIC METABOLIC PANEL Routine 06/16/2018 5:46 Results for this (7) AM [employer] procedure are in the results section. CBC W/PLT COUNT & AUTO Routine 06/16/2018 5:46 Results for this DIFFERENTIAL AM [employer] procedure are in the results section. POCT-GLUCOSE METER Routine 06/15/2018 9:49 Results for this PM [employer] procedure are in the results section. TRANSFUSION SERVICE 06/15/2018 6:12 REPORT - SCAN PM [employer] POCT-GLUCOSE METER Routine 06/15/2018 4:02 Results for this PM [employer] procedure are in the results section. CBC W/PLT COUNT & AUTO Routine 06/15/2018 6:39 Results for this DIFFERENTIAL AM [employer] procedure are in the results section. BASIC METABOLIC PANEL Routine 06/15/2018 6:39 Results for this (7) AM [employer] procedure are in the results section. CBC W/PLT COUNT & AUTO Routine 06/15/2018 6:39 Results for this DIFFERENTIAL AM [employer] procedure are in the results section. PREPARE LEUKO-REDUCED YOSEPH 06/14/2018 11:54 Results for this RBC PM [employer] procedure are in the results section. TRANSFUSION SERVICE 06/14/2018 6:00 REPORT - SCAN PM [employer] TRANSFUSE LEUKO-REDUCED Routine 06/14/2018 12:56 RED BLOOD CELLS PM [employer] POCT-GLUCOSE METER Routine 06/14/2018 7:36 Results for this AM [employer] procedure are in the results section. CBC W/PLT COUNT & AUTO Routine 06/14/2018 5:15 Results for this DIFFERENTIAL AM [employer] procedure are in the results section. BASIC METABOLIC PANEL Routine 06/14/2018 5:15 Results for this (7) AM [employer] procedure are in the results section. CARCINOEMBRYONIC ANTIGEN Routine 06/14/2018 5:15 Results for this (CEA) AM [employer] procedure are in the results section. CBC W/PLT COUNT & AUTO Routine 06/14/2018 5:15 Results for this DIFFERENTIAL AM [employer] procedure are in the results section. POCT-GLUCOSE METER Routine 06/13/2018 9:19 Results for this PM [employer] procedure are in the results section. HEMOGLOBIN AND Routine 06/13/2018 6:45 Results for this HEMATOCRIT PM [employer] procedure are in the results section. POCT-GLUCOSE METER Routine 06/13/2018 6:13 Results for this PM [employer] procedure are in the results section. ECHOCARDIOGRAM REPORT - 06/13/2018 5:30 SCAN PM [employer] ABORH, MANUAL STAT 06/13/2018 12:17 Results for this PM [employer] procedure are in the results section. POCT-GLUCOSE METER Routine 06/13/2018 12:16 Results for this PM [employer] procedure are in the results section. TYPE AND SCREEN, Routine 06/13/2018 11:05 Results for this AUTOMATED AM [employer] procedure are in the results section. POCT-GLUCOSE METER Routine 06/13/2018 8:23 Results for this AM [employer] procedure are in the results section. CBC W/PLT COUNT & AUTO Routine 06/13/2018 6:36 Results for this DIFFERENTIAL AM [employer] procedure are in the results section. CBC W/PLT COUNT & AUTO Routine 06/13/2018 6:36 Results for this DIFFERENTIAL AM [employer] procedure are in the results section. POCT-GLUCOSE METER Routine 06/12/2018 6:17 Results for this PM [employer] procedure are in the results section. 2D ECHO W/ DOPPLER Routine 06/12/2018 1:49 Results for this (CW/PW/COLOR) PM [employer] procedure are in the results section. POCT-GLUCOSE METER Routine 06/12/2018 12:39 Results for this PM [employer] procedure are in the results section. POCT-GLUCOSE METER Routine 06/12/2018 8:27 Results for this AM [employer] procedure are in the results section. CBC W/PLT COUNT & AUTO STAT 06/12/2018 6:16 Results for this DIFFERENTIAL AM [employer] procedure are in the results section. PHOSPHORUS STAT 06/12/2018 6:16 Results for this AM [employer] procedure are in the results section. MAGNESIUM STAT 06/12/2018 6:16 Results for this AM [employer] procedure are in the results section. BASIC METABOLIC PANEL STAT 06/12/2018 6:16 Results for this (7) AM [employer] procedure are in the results section. CBC W/PLT COUNT & AUTO STAT 06/12/2018 6:16 Results for this DIFFERENTIAL AM [employer] procedure are in the results section. POCT-GLUCOSE METER Routine 06/11/2018 11:00 Results for this PM [employer] procedure are in the results section. US RENAL COMPLETE Routine 06/11/2018 7:51 Results for this PM [employer] procedure are in the results section. POCT-GLUCOSE METER Routine 06/11/2018 6:32 Results for this PM [employer] procedure are in the results section. URINALYSIS MICROSCOPIC Routine 06/11/2018 4:07 Results for this PM [employer] procedure are in the results section. PROTEIN, RANDOM URINE Routine 06/11/2018 4:07 Results for this PM [employer] procedure are in the results section. CREATININE, RANDOM URINE Routine 06/11/2018 4:07 Results for this PM [employer] procedure are in the results section. UREA NITROGEN, RANDOM Routine 06/11/2018 4:07 Results for this URINE PM [employer] procedure are in the results section. SODIUM, RANDOM URINE Routine 06/11/2018 4:07 Results for this PM [employer] procedure are in the results section. URINALYSIS WITH Routine 06/11/2018 4:07 Results for this MICROSCOPIC IF INDICATED PM [employer] procedure are in the results section. HEMOGLOBIN A1C Routine 06/11/2018 2:03 Results for this PM [employer] procedure are in the results section. FERRITIN Routine 06/11/2018 2:03 Results for this PM [employer] procedure are in the results section. IRON, TIBC, % SAT. Routine 06/11/2018 2:03 Results for this (WITHOUT FERRITIN) PM [employer] procedure are in the results section. VITAMIN D, 25-HYDROXY Routine 06/11/2018 2:03 Results for this PM [employer] procedure are in the results section. PTH, INTACT Routine 06/11/2018 2:03 Results for this PM [employer] procedure are in the results section. POCT-GLUCOSE METER Routine 06/11/2018 1:13 Results for this PM [employer] procedure are in the results section. XR CHEST 1 VIEW Routine 06/11/2018 10:02 Results for this PORTABLE/BEDSIDE AM [employer] procedure are in the results section. POCT-GLUCOSE METER Routine 06/11/2018 7:47 Results for this AM [employer] procedure are in the results section. CARCINOEMBRYONIC ANTIGEN Routine 06/11/2018 1:35 Results for this (CEA) AM [employer] procedure are in the results section. PROTHROMBIN TIME/INR Routine 06/11/2018 1:35 Results for this AM [employer] procedure are in the results section. PREALBUMIN Routine 06/11/2018 1:35 Results for this AM [employer] procedure are in the results section. PHOSPHORUS Routine 06/11/2018 1:33 Results for this AM [employer] procedure are in the results section. MAGNESIUM Routine 06/11/2018 1:33 Results for this AM [employer] procedure are in the results section. BASIC METABOLIC PANEL Routine 06/11/2018 1:33 Results for this (7) AM [employer] procedure are in the results section. CBC (HEMOGRAM ONLY) Routine 06/11/2018 1:33 Results for this AM [employer] procedure are in the results section. HEPATIC FUNCTION PANEL Routine 06/11/2018 1:33 Results for this AM [employer] procedure are in the results section. after 08/07/2017 Results POC-Glucose meter (06/18/2018 12:33 PM [employer])Only the most recent of24 resultswithin the time period is included. POC-Glucose Meter 223 (H)Comment: TESTED AT 70 - 110 mg/dL [place] [id number] [facility] [id number] Specimen Blood Performing Organization Address City/State/Zipcode Phone Number [address] [address] [phone] CENTER CBC with platelet count + automated diff (06/18/2018 5:41 AM [employer])Only the most recent of7 resultswithin the time period is included. WBC 8.9 3.5 - 10.5 K/L [facility] RBC 3.55 (L) 3.93 - 5.22 M/L [facility] Hemoglobin 9.8 (L) 11.2 - 15.7 GM/DL [facility] Hematocrit 32.1 (L) 34.1 - 44.9 % [facility] MCV 90.4 79.4 - 94.8 fL [facility] MCH 27.6 25.6 - 32.2 pg [facility] MCHC 30.5 (L) 32.2 - 35.5 GM/DL [facility] RDW 15.9 (H) 11.7 - 14.4 % [facility] Platelets 346 150 - 450 K/CU MM [facility] MPV 9.1 (L) 9.4 - 12.3 fL [facility] nRBC 0 0 - 0 /100 WBC [facility] % Neutros 56 % [facility] % Lymphs 31 % [facility] % Monos 9 % [facility] % Eos 4 % [facility] % Baso 1 % [facility] # Neutros 4.92 1.56 - 6.13 K/L [facility] # Lymphs 2.72 1.18 - 3.74 K/L [facility] # Monos 0.75 (H) 0.24 - 0.36 K/L [facility] # Eos 0.38 (H) 0.04 - 0.36 K/L [facility] # Baso 0.05 0.01 - 0.08 K/L [facility] Immature Granulocytes-Relative 0 0 - 1 % [facility] Specimen Blood - Arm, Left Performing Organization Address City/State/Zipcode Phone Number [facility] [address] [place] [address] CENTER GI Pathogen Profile by PCR -ID Only (06/17/2018 12:15 PM [employer]) CAMPYLOBACTER (PCR) Not detected Not detected [facility] PLESIOMONAS SHIGELLOIDES (PCR) Not detected Not detected [facility] SALMONELLA (PCR) Not detected Not detected [facility] YERSINIA ENTEROCOLITICA (PCR) Not detected Not detected [facility] VIBRIO CHOLERAE (PCR) Not detected Not detected [facility] ENTEROAGGREGATIVE E. COLI (EAEC) Not detected Not detected [facility] BY PCR [facility] [place] ENTEROPATHOGENIC E. COLI (EPEC) BY Not detected Not detected [facility] PCR [facility] ENTEROTOXIGENIC E. COLI (ETEC) Not detected Not detected [facility] LT/ST BY PCR [facility] [place] SHIGA-LIKE TOXIN-PRODUCING E. COLI Not detected Not detected [facility] (STEC) STX1/STX2 [facility] [place] E. COLI O157 (PCR) Not detected [facility] SHIGELLA/ENTEROINVASIVE E. COLI Not detected Not detected [facility] (EIEC) BY PCR [facility] CRYPTOSPORIDIUM (PCR) Not detected Not detected [facility] CYCLOSPORA CAYETANENSIS (PCR) Not detected Not detected [facility] ENTAMOEBA HISTOLYTICA (PCR) Not detected Not detected [facility] GIARDIA LAMBLIA (PCR) Not detected Not detected [facility] ADENOVIRUS F 40/41 (PCR) Not detected Not detected [facility] ASTROVIRUS (PCR) Not detected Not detected [facility] NOROVIRUS GI/GII (PCR) Not detected Not detected [facility] ROTAVIRUS A (PCR) Not detected Not detected [facility] SAPOVIRUS (I, II, IV, V) BY PCR Not detected Not detected [facility] VIBRIO (PARAHAEMOLYTICUS, Not detected Not detected [facility] VULNIFICUS) [facility] Specimen Stool - Per Rectum Narrative Performed At Other viruses, parasites and bacteria not [facility] targeted by this PCR panel cannot be excluded; therefore clinical correlation and follow up of serology, culture results, and other molecular studies is required. The results are not intended to be used as the sole means for clinical diagnosis or patient management decisions. This sample was tested at the [facility] Molecular Diagnostics Laboratory using the [employer] Gastrointestinal Panel. It is FDA cleared and has been verified and approved by the [facility] Molecular Diagnostics Laboratory for clinical use. This laboratory is CLIA-certified and [employer] (CAP)-accredited to perform high complexity testing. Performing Organization Address [facility]/Zipcode Phone Number [address] [address] [phone] [place] Basic Metabolic Panel (06/17/2018 8:57 AM [employer])Only the most recent of6 resultswithin the time period is included. Sodium 141 136 - 145 meq/L [facility] Potassium 3.4 (L) 3.5 - 5.1 meq/L [facility] Chloride 112 (H) 98 - 107 meq/L [facility] CO2 19 (L) 22 - 29 meq/L [facility] BUN 28 (H) 7 - 21 mg/dL [facility] Creatinine 6.06 (H) 0.57 - 1.25 mg/dL [facility] Glucose 115 (H) 70 - 105 mg/dL [facility] Calcium 7.4 (L) 8.4 - 10.2 mg/dL [facility] EGFR 7Comment: ESTIMATED GFR IS mL/min/1.73 sq m [facility] NOT ACCURATE CREATININE [facility] CLEARANCE IN PREDICTING GLOMERULAR FILTRATION RATE. ESTIMATED GFR IS NOT APPLICABLE FOR DIALYSIS PATIENTS. Specimen Blood - Arm, Left Performing Organization Address [facility]/Zipcode Phone Number [facility] [address] [place] [address] [phone] [place] Clostridium difficile GDH Toxin (06/16/2018 2:50 PM [employer]) C. Difficle Toxin Negative Negative [facility] C. Difficile GDH Antigen NegativeComment: No Negative [facility] indication of Clostridium [facility] [place] difficile infection and no colonization. Discontinue enteric isolation and therapy. Specimen Stool - Stool Narrative Performed At Testing performed by [employer] [facility] Assay.For GDH, published sensitivity of the assay is 98.7% compared to cytotoxicity testing.For Toxin AB, published sensitivity is 87.8% and specificity 99.4% compared to cytotoxicity testing. Verification of kit performance was done by the [facility] Microbiology Lab prior to clinical use. Performing Organization Address [facility] Ranch[facility]ode Phone Number [address] [phone] [place] TRANSFUSION SERVICE REPORT - SCAN (06/15/2018 6:12 PM [employer])Only the most recent of2 resultswithin the time period is included. Narrative Performed At Prepare Leuko-Red RBC (06/14/2018 11:54 PM [employer]) CROSSMATCH COMPATIBLE SAFETRACE TX Unit ABO O Pos SAFETRACE TX UNIT NUMBER [id number] SAFETRACE TX Status TX_TIMEINCHART SAFETRACE TX Blood Bank Product RED BLOOD CELLS SAFETRACE TX PRODUCT CODE [id number] SAFETRACE TX Specimen Other Performing Organization Address [facility] Phone Number SAFETRACE TX Transfuse Leuko-Red RBC (06/14/2018 12:56 PM [employer])Only the most recent of2 resultswithin the time period is included.Carcinoembryonic Antigen (CEA) (2018 5:15 AM [employer])Only the most recent of2 resultswithin the time period is included. CEA, SERUM 3.7 0.0 - 5.0 ng/mL [facility] Specimen Blood - Arm, Left Performing Organization Address [facility] Ranch[facility] Phone Number [address] [address] [phone] [place] Hemoglobin and hematocrit (06/13/2018 6:45 PM [employer]) Hemoglobin 9.0 (L) 11.2 - 15.7 GM/DL [facility] Hematocrit 28.5 (L) 34.1 - 44.9 % [facility] Specimen Blood - Arm, Left Narrative Performed At Post transfusion [facility] Performing Organization Address City/State/Zipcode Phone Number [address] [address] CENTER ECHOCARDIOGRAM REPORT - SCAN (06/13/2018 5:30 PM [employer]) Narrative Performed At ABORH, manual (06/13/2018 12:17 PM [employer]) ABO Grouping O [facility] Rh Factor POS [facility] Specimen Blood Performing Organization Address City/[facility]/Zipcode Phone Number [address] [address] Type and screen, automated (06/13/2018 11:05 AM [employer]) ABO/RH AUTOMATED (BEAKER) O POSITIVE [facility] Ab Scrn NEGATIVE [facility] Specimen Blood Performing Organization Address City/State/Zipcode Phone Number [address] [address] 2D Echo W/Doppler(CW/PW/Color) (06/12/2018 1:49 PM [employer]) Ejection Fraction [facility] ECHO [facility] Narrative Performed At Transthoracic Echocardiography Report (TTE) [facility] Demographics Patient Name Nicki DINH of Study 06/12/2018 [id number] GenderFemale Visit Number [id number] Unknown [id number] Room Number 2110 Number Date of Birth1955Referring Physician Ehsan Wilson Age62 year(s)Animal Groomer Yosvany GILLETTE AnalystIzoAlla Ceballos MD Procedure Type of Study TTE procedure:2DECHO W DOPPLER(CW/PW/COLOR) (Routine) Indications:Suspected Pericardial conditions. Clinical History Diabetes CKD Hypertension HGB 7.2 HCT 23.1 % Height: 61 inches Weight: 67.13 kg (148 lbs) BSA: 1.66 m^2 BMI: 27.96 kg/m^2 HR: 71 bpm BP: 128/65 mmHg Summary The left ventricle is chamber size (by PSLAX dimension) is normal (female - LVIDd 3.8-5.2cm) . Mild concentric LV hypertrophy. All of the LV segments contract normally . Global LV systolic function normal . Estimated LVEF by qualitative assessment is normal (>60%) . Diastolic dysfunction is likely due to concomitant heart disease. Increased (cardiac index 3.5-4.0 L/min/m2) cardiac output state at rest is noted. A [id number] circumferential pericardial effusion is present, prominent around the posterolateral LV and RA Pericardial tamponade physiology is not evident based on available data . The estimated RA pressure by IVC dynamics 5mmHg . Previous Study No prior exam available for comparison. Signature Findings Rhythm/BPRegular sinus rhythm during the exam. Left Ventricle The left ventricle is chamber size (by PSLAX di mension) is normal (female - LVIDd 3.8-5.2cm) . Mi ld concentric LV hypertrophy. All of the LV se gments contract normally . Global LV systolic fu nction normal . Estimated LVEF by qualitative as sessment is normal (>60%) . Diastolic dysfunction is likely due to concomitant heart disease. In creased (cardiac index 3.5-4.0 L/min/m2) cardiac ou tput state at rest is noted. Left AtriumLA size is severely enlarged (>48 ml/m2) . Right VentricleThe right ventricular chamber size and systolic fu nction are within normal limits. Right Atrium RA cavity size is normal . Aortic Valve AoV thickening primarily involves the non- coronary cu ps(s). Mitral Valve Mild MV leaflet thickening. Tr parth mitral regurgitation. Tricuspid ValveA trace of tricuspid regurgitation. Es timated peak systolic PA pressure is 30-35 mmHg . Pulmonic Valve Normal PV structure and function by limited views an d Doppler. AortaAortic root size (SInus of Valsalva diameter) is no rmal . Proximal ascending aorta size is normal . PericardiumA jzrid-lu-serafupy circumferential pericardial ef fusion is present, prominent around the po sterolateral LV and RA Pe ricardial tamponade physiology is not evident ba sed on available data . IVC/SVC/PA/PV/PleuralThe estimated RA pressure by IVC dynamics 5mmHg . Chambers/Structures Left Atrium LA Volume: 93.28 ml LA Area: 26.76 cm^2 LA Vol. Index: 56 ml/m^2 Left Ventricle LVIDd: 4.21 cm LV Septum Diastolic: 1.28 cm LV PW Diastolic: 1.51 cm LVOT Diameter: 1.93 cm Right Atrium RA Vol. (Sngl Plane): 44.66 ml Aorta Ao Root S of Corinne.: 2.98 cmAscending Aorta: 3.15 cm Doppler/Quantitative Measurements Mitral Valve MV Peak E-Wave: 0.97 m/sMV Peak A-Wave: 1.48 m/s E/A Ratio: 0.65 Peak Gradient: 3.76 mmHg Deceleration Time: 285.9 msec MV Oamr. Peak: Tissue Doppler E' Lateral Velocity: 0.05 m/s E/E': 18.95 Aortic Valve Peak Velocity: 1.96 m/sMean Velocity: 1.43 m/s Peak Gradient: 15.41 mmHgMean Gradient: 8.94 mmHg AV Area (continuity): 2.22 cm^2 AV VTI: 42.64 cm AV DVI: 0.76 LVOT Peak Velocity: 1.49 m/s Peak Gradient: 8.88 mmHg Mean Velocity: 1.03 m/s Mean Gradient: 4.82 mmHg LVOT Diameter: 1.93 cmLVOT VTI: 32.39 cm LVOT Area: 2.93 cm^2LVOT SV:94.71 ml LVOT CO: 6.72 l/min LVOT CI: 4.05 l/min/m^2 Tricuspid Valve TR Velocity: 2.68 m/s TR Gradient: 28.71 mmHg Procedure Note Interface, External Ris In - 06/13/2018 4:50 PM [employer] REPLACER Transthoracic Echocardiography Report (TTE) Demographics Patient Name YUMIKO DINH Date of Study 06/12/2018 Gender Female Visit Number [id number] Race Unknown Room Number 2110 Number Date of 1955 Referring Physician Ehsan Wilson Age 62 year(s) 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 Clinical History Diabetes CKD Hypertension HGB 7.2 HCT 23.1 % Height: 61 inches Weight: 67.13 kg (148 lbs) BSA: 1.66 m^2 BMI: 27.96 kg/m^2 HR: 71 bpm BP: 128/65 mmHg Summary The left ventricle is chamber size (by PSLAX dimension) is normal (female - LVIDd 3.8-5.2cm) . Mild concentric LV hypertrophy. All of the LV segments contract normally . Global LV systolic function normal . Estimated LVEF by qualitative assessment is normal (>60%) . Diastolic dysfunction is likely due to concomitant heart disease. Increased (cardiac index 3.5-4.0 L/min/m2) cardiac output state at rest is noted. A ycahv-ey-betecwpo circumferential pericardial effusion is present, prominent around the posterolateral LV and RA Pericardial tamponade physiology is not evident based on available data . The estimated RA pressure by IVC dynamics 5mmHg . Previous Study No prior exam available for comparison. Signature Findings Rhythm/BP Regular sinus rhythm during the exam. Left Ventricle The left ventricle is chamber size (by PSLAX dimension) is normal (female - LVIDd 3.8-5.2cm) . Mild concentric LV hypertrophy. All of the LV segments contract normally . Global LV systolic function normal . Estimated LVEF by qualitative assessment is normal (>60%) . Diastolic dysfunction is likely due to concomitant heart disease. Increased (cardiac index 3.5-4.0 L/min/m2) cardiac output state at rest is noted. Left Atrium LA size is severely enlarged (>48 ml/m2) . Right Ventricle The right ventricular chamber size and systolic function are within normal limits. Right Atrium RA cavity size is normal . Aortic Valve AoV thickening primarily involves the non- coronary cups(s). Mitral Valve Mild MV leaflet thickening. Trace mitral regurgitation. Tricuspid Valve A trace of tricuspid regurgitation. Estimated peak systolic PA pressure is 30-35 mmHg . Pulmonic Valve Normal PV structure and function by limited views and Doppler. Aorta Aortic root size (SInus of Valsalva diameter) is normal . Proximal ascending aorta size is normal . Pericardium A nuily-ey-remgmldv circumferential pericardial effusion is present, prominent around the posterolateral LV and RA Pericardial tamponade physiology is not evident based on available data . IVC/SVC/PA/PV/Pleural The estimated RA pressure by IVC dynamics 5mmHg . Chambers/Structures Left Atrium LA Volume: 93.28 ml LA Area: 26.76 cm^2 LA Vol. Index: 56 ml/m^2 Left Ventricle LVIDd: 4.21 cm LV Septum Diastolic: 1.28 cm LV PW Diastolic: 1.51 cm LVOT Diameter: 1.93 cm Right Atrium RA Vol. (Sngl Plane): 44.66 ml Aorta Ao Root S of Corinne.: 2.98 cm Ascending Aorta: 3.15 cm Doppler/Quantitative Measurements Mitral Valve MV Peak E-Wave: 0.97 m/s MV Peak A-Wave: 1.48 m/s E/A Ratio: 0.65 Peak Gradient: 3.76 mmHg Deceleration Time: 285.9 msec MV Omar. Peak: Tissue Doppler E' Lateral Velocity: 0.05 m/s E/E': 18.95 Aortic Valve Peak Velocity: 1.96 m/s Mean Velocity: 1.43 m/s Peak Gradient: 15.41 mmHg Mean Gradient: 8.94 mmHg AV Area (continuity): 2.22 cm^2 AV VTI: 42.64 cm AV DVI: 0.76 LVOT Peak Velocity: 1.49 m/s Peak Gradient: 8.88 mmHg Mean Velocity: 1.03 m/s Mean Gradient: 4.82 mmHg LVOT Diameter: 1.93 cm LVOT VTI: 32.39 cm LVOT Area: 2.93 cm^2 LVOT SV:94.71 ml LVOT CO: 6.72 l/min LVOT CI: 4.05 l/min/m^2 Tricuspid Valve TR Velocity: 2.68 m/s TR Gradient: 28.71 mmHg Performing Organization Address City/[facility] Phone Number [facility] ECHO [facility]ART[facility] MKCKESSON CPACS Phosphorus (06/12/2018 6:16 AM [employer]AMP REPLACER)Only the most recent of2 resultswithin the time period is included. Phosphorus 5.7 (H) 2.3 - 4.7 mg/dL [facility] Specimen Blood - Arm, Right Performing Organization Address [facility] Phone Number [address] [address] [facility] Magnesium (06/12/2018 6:16 AM [employer] REPLACER)Only the most recent of2 resultswithin the time period is included. Magnesium 1.3 (L) 1.6 - 2.6 mg/dL [facility] Specimen Blood - Arm, Right Performing Organization Address [facility] [place] Phone Number [facility] [address] [place] [phone] CENTER renal complete (06/11/2018 7:51 PM [employer] REPLACER) Narrative Performed At FINAL REPORT [employer] Renal ultrasound, 06/11/2018. History:Acute kidney injury. Findings: Sonographic evaluation of the kidneys was performed. Right kidney:10.7 cm in length, normal in size, with cortical thickness of 1.1 cm.Normal cortical echogenicity.No mass.No calculus.No hydronephrosis. Left kidney: 9.5 cm in length, normal in size, with cortical thickness of 1.2 cm.Normal cortical echogenicity.No mass.No calculus.No hydronephrosis. Urinary bladder:Unremarkable. Vasculature: Color Doppler survey demonstrates patency of main renal artery and vein bilaterally. Impression: Normal renal ultrasound. Signed: Roxane Pappas MD Report Verified Date/Time:06/11/2018 20:20:56 Reading Location: [address] Consult Reading Room Procedure Note Interface, External Ris In - 06/11/2018 8:23 PM [employer] REPLACER FINAL REPORT Renal ultrasound, 06/11/2018. History: Acute kidney injury. Findings: Sonographic evaluation of the kidneys was performed. Right kidney: 10.7 cm in length, normal in size, with cortical thickness of 1.1 cm. Normal cortical echogenicity. No mass. No calculus. No hydronephrosis. Left kidney: 9.5 cm in length, normal in size, with cortical thickness of 1.2 cm. Normal cortical echogenicity. No mass. No calculus. No hydronephrosis. Urinary bladder: Unremarkable. Vasculature: Color Doppler survey demonstrates patency of main renal artery and vein bilaterally. Impression: Normal renal ultrasound. Signed: Roxane Pappas MD Report Verified Date/Time: 06/11/2018 20:20:56 Reading Location: [facility] C013 Consult Reading Room Performing Organization Address City/State/Zipcode Phone Number [facility] Urinalysis Microscopic Only (06/11/2018 4:07 PM [employer] REPLACER) RBC, UA 1 /HPF [facility] WBC, UA 6 /HPF [facility] Squam Epithel, UA 1 /HPF [facility] Specimen Urine - Urine, Voided Performing Organization Address City/[facility]/Zipcode Phone Number [address] [address] CENTER Urinalysis with Microscopic If Indicated (06/11/2018 4:07 PM [employer] REPLACER) Color, UA Light Yellow [facility] Clarity, UA Clear [facility] Specific [place], UA 1.008 1.001 - 1.035 [facility] pH, UA 6.5 5.0 - 8.0 [facility] Protein, UA 300 mg/dL (A) Negative [facility] Glucose, UA 100 mg/dL (A) Negative [facility] Ketones, UA Negative Negative [facility] Bilirubin, UA Negative Negative [facility] Blood, UA Small (A) Negative [facility] Nitrite, UA Negative Negative [facility] Leukocytes, UA Trace (A) Negative [facility] Urobilinogen, UA 0.2 0.2 - 1.0 mg/dL [facility] Specimen Source [facility] Specimen Urine - Urine, Voided Performing Organization Address [facility] Phone Number [address] [address] CENTER Urea Nitrogen, random urine (06/11/2018 4:07 PM [employer] REPLACER) Urea Nitrogen, Ur 230 mg/dL [facility] Specimen Urine - Urine, Voided Narrative Performed At Reference Range: No Normals [facility] Performing Organization Address [facility] Phone Number [address] [address] CENTER Sodium, random urine (06/11/2018 4:07 PM FLU[employer]ESC[employer]AMP REPLACER) Sodium Urine 57 meq/L [facility] Specimen Urine - Urine, Voided Narrative Performed At Reference Range: No Normals [facility] Performing Organization Address City/[facility] Phone Number [address] [phone] [place] Protein, random urine (06/11/2018 4:07 PM FL[employer]ESCENT [employer]AMP REPLACER) Protein, Urine 535 (H) 0 - 14 mg/dL [facility] Specimen Urine - Urine, Voided Performing Organization Address [facility] [place] Phone Number [address] [address] [phone] [place] Creatinine, random urine (06/11/2018 4:07 PM FL[employer]ESCENT [employer]AMP REPLACER) Creatinine, Ur 95.3 mg/dL [facility] Specimen Urine - Urine, Voided Narrative Performed At Reference Range: No Normals [facility] Performing Organization Address [facility] [place] Phone Number [address] [address] [phone] [place] Iron, TIBC, % sat. (without ferritin) (06/11/2018 2:03 PM [employer]ESC[employer] REPLACER) Iron 55.0 40.0 - 160.0 ug/dL [facility] TIBC 140 (L) 250 - 450 ug/dL [facility] Iron % Saturation 39 20 - 55 % [facility] Specimen Blood - Arm, Right Performing Organization Address [facility] Phone Number [address] [address] [phone] [place] Vitamin D, 25-Hydroxy (06/11/2018 2:03 PM FL[employer] REPLACER) Vitamin D 25-Hydroxy 17.4 6.6 - 49.9 ng/mL [facility] Specimen Blood - Arm, Right Narrative Performed At Effective 02/04/2017: Reference Range Change [facility] New: 6.6-49.9 ng/mL Previous: 13.0-47.8 ng/mL Recommended Vitamin D Target Range: 30.0-40.0 ng/mL Performing Organization Address [facility]/Zipcode Phone Number [address] [phone] CENTER PTH, intact (06/11/2018 2:03 PM FL[employer]AMP REPLACER) PTH 809.3 (H) 8.5 - 72.5 pg/mL [facility] Specimen Blood - Arm, Right Performing Organization Address [facility] Phone Number [address] [phone] [place] Hemoglobin A1c (06/11/2018 2:03 PM FL[employer] REPLACER) Hemoglobin A1C 5.1 4.3 - 6.1 % [facility] Specimen Blood - Arm, Right Performing Organization Address [facility] Phone Number [address] [address] [phone] CENTER Ferritin (06/11/2018 2:03 PM FLUORESCENT LAMP REPLACER) Ferritin 78 5 - 275 ng/mL [facility] Specimen Blood - Arm, Right Performing Organization Address [facility] Phone Number [address] [phone] [place] XR chest 1 view portable / bedside (06/11/2018 10:02 AM FL[employer]AMP REPLACER) Narrative Performed At FINAL REPORT [facility] Chest x-ray Clinical History: pleural effusions, pericardial effusion Comparison: No comparison Views: [place] Chest x-ray: The cardiac and mediastinal silhouettes are prominent with a left ventricular configuration.There is no evidence of a pneumothorax. There is no evidence of a large pleural effusion.There is no evidence of overt cardiac failure.The visible regional skeleton is intact. Subsegmental atelectasis is visualized in the left mid and lower lung zone. This is a suboptimal inspiratory effort. Impression: Suboptimal inspiratory effort with subsegmental atelectasis and no active cardiopulmonary disease. A tiny left pleural effusion cannot be excluded. Pericardial effusion is considered unlikely given the acute angle at the right cardiophrenic sulcus. Signed: Jackie Frias MD Report Verified Date/Time:06/11/2018 10:39:13 Reading Location: [facility] Radiology Reading Room Procedure Note Interface, External Ris In - 06/11/2018 10:41 AM FL[employer]ESCENT LAMP REPLACER FINAL REPORT Chest x-ray Clinical History: pleural effusions, pericardial effusion Comparison: No comparison Views: [place] Chest x-ray: The cardiac and mediastinal silhouettes are prominent with a left ventricular configuration. There is no evidence of a pneumothorax. There is no evidence of a large pleural effusion. There is no evidence of overt cardiac failure. The visible regional skeleton is intact. Subsegmental atelectasis is visualized in the left mid and lower lung zone. This is a suboptimal inspiratory effort. Impression: Suboptimal inspiratory effort with subsegmental atelectasis and no active cardiopulmonary disease. A tiny left pleural effusion cannot be excluded. Pericardial effusion is considered unlikely given the acute angle at the right cardiophrenic sulcus. Signed: Jackie Frias MD Report Verified Date/Time: 06/11/2018 10:39:13 Reading Location: [facility] Radiology Reading Room Performing Organization Address City/[facility]/Zipcode Phone Number RIS Prothrombin time/INR (06/11/2018 1:35 AM FLU[employer]ESCENT LAMP REPLACER) Protime 15.2 (H) 11.7 - 14.7 seconds [facility] INR 1.2 <=5.9 [facility] Specimen Blood Narrative Performed At RECOMMENDED COUMADIN/WARFARIN INR THERAPY [facility] RANGES STANDARD DOSE: 2.0 - 3.0 Includes: PROPHYLAXIS for venous thrombosis, systemic embolization; TREATMENT for venous thrombosis and/or pulmonary embolus. HIGH RISK: Target INR is 2.5-3.5 for patients with mechanical heart valves. Performing Organization Address City/State/Zipcode Phone Number [address] [address] [phone] CENTER Prealbumin (06/11/2018 1:35 AM FL[employer]ESCENT LAMP REPLACER) Prealbumin 9 (L) 14 - 45 mg/dL [facility] Specimen Blood Performing Organization Address City/[facility]/Zipcode Phone Number [facility] [address] [place] [address] [place] CBC (Hemogram only) (06/11/2018 1:33 AM FLUORESCENT LAMP REPLACER) WBC 7.1 3.5 - 10.5 K/L [facility] RBC 2.60 (L) 3.93 - 5.22 M/L [facility] Hemoglobin 7.1 (L) 11.2 - 15.7 GM/DL [facility] Hematocrit 22.9 (L) 34.1 - 44.9 % [facility] MCV 88.1 79.4 - 94.8 fL [facility] MCH 27.3 25.6 - 32.2 pg [facility] MCHC 31.0 (L) 32.2 - 35.5 GM/DL [facility] RDW 16.0 (H) 11.7 - 14.4 % [facility] Platelets 200 150 - 450 K/CU MM [facility] MPV 10.3 9.4 - 12.3 fL [facility] nRBC 0 0 - 0 /100 WBC [facility] Specimen Blood Performing Organization Address City/State/Zipcode Phone Number [facility] [address] [place] [address] [place] Hepatic function panel (06/11/2018 1:33 AM FLU[employer]ESC[employer]AMP REPLACER) Protein, Total 5.0 (L) 6.0 - 8.3 gm/dL [facility] Albumin 2.0 (L) 3.5 - 5.0 g/dL [facility] Total Bilirubin 0.2 0.2 - 1.2 mg/dL [facility] Bilirubin, Direct 0.1 0.1 - 0.5 mg/dL [facility] Alkaline Phosphatase 74 40 - 150 U/L [facility] AST 13 5 - 34 U/L [facility] ALT 9 6 - 55 U/L [facility] Specimen Blood Performing Organization Address City/State/Zipcode Phone Number [facility] [address] [place] [address] [phone] CENTER after 08/07/2017
--- OUTSIDE RECORDS SUMMARY | 2018-08-08 22:54 | XMS REPORT ---
:1955 [facility] [address] [place] [address] Care Team Providers Name Role Phone KENNEDY BLUE Unavailable Unavailable Problems This patient has no known problems. Allergies, Adverse Reactions, Alerts This patient has no known allergies or adverse reactions. Medications This patient has no known medications. Results Test Description Test Time Test Comments Text Results Atomic Results Result Comments POCT-GLUCOSE METER 2018-06-18 12:40:00 Test Item Value Reference Range Comments POC-GLUCOSE METER (BEAKER) (test 223 mg/dL 70-[address] [facility] [address] [facility] eoyr=[id number]) [facility] [address] POCT-GLUCOSE [id number] 08:04:00 Test Item Value Reference Range Comments POC-GLUCOSE METER (BEAKER) 105 mg/dL 70-[address] [facility] [address] [facility] (test hrnm=7576) [facility] [address] CBC W/PLT COUNT & AUTO [id number] 06:25:00 Test Item Value Reference Range Comments WHITE BLOOD CELL COUNT (BEAKER) (test cndd=449) 8.9 K/ L 3.5-10.5 RED BLOOD CELL COUNT (BEAKER) (test lxzf=449) 3.55 M/ L 3.93-5.22 HEMOGLOBIN (BEAKER) (test hkzh=079) 9.8 GM/DL 11.2-15.7 HEMATOCRIT (BEAKER) (test bcjg=900) 32.1 % 34.1-44.9 MEAN CORPUSCULAR VOLUME (BEAKER) (test twji=740) 90.4 fL 79.4-94.8 MEAN CORPUSCULAR HEMOGLOBIN (BEAKER) (test 27.6 pg 25.6-32.2 ifsm=887) MEAN CORPUSCULAR HEMOGLOBIN CONC (BEAKER) (test 30.5 GM/DL 32.2-35.5 lsry=562) RED CELL DISTRIBUTION WIDTH (BEAKER) (test 15.9 % 11.7-14.4 aguo=008) PLATELET COUNT (BEAKER) (test isvg=436) 346 K/CU MM 150-450 MEAN PLATELET VOLUME (BEAKER) (test iffd=566) 9.1 fL 9.4-12.3 NUCLEATED RED BLOOD CELLS (BEAKER) (test 0 /100 WBC 0-0 pifj=037) NEUTROPHILS RELATIVE PERCENT (BEAKER) (test 56 % aahf=854) LYMPHOCYTES RELATIVE PERCENT (BEAKER) (test 31 % yvdw=945) MONOCYTES RELATIVE PERCENT (BEAKER) (test 9 % fluu=732) EOSINOPHILS RELATIVE PERCENT (BEAKER) (test 4 % irhq=502) BASOPHILS RELATIVE PERCENT (BEAKER) (test 1 % vwmz=578) NEUTROPHILS ABSOLUTE COUNT (BEAKER) (test 4.92 K/ L 1.56-6.13 miho=710) LYMPHOCYTES ABSOLUTE COUNT (BEAKER) (test 2.72 K/ L 1.18-3.74 nkbu=879) MONOCYTES ABSOLUTE COUNT (BEAKER) (test 0.75 K/ L 0.24-0.36 bfkb=190) EOSINOPHILS ABSOLUTE COUNT (BEAKER) (test 0.38 K/ L 0.04-0.36 ukfd=648) BASOPHILS ABSOLUTE COUNT (BEAKER) (test 0.05 K/ L 0.01-0.08 qnwz=538) IMMATURE GRANULOCYTES-RELATIVE PERCENT (BEAKER) 0 % 0-1 (test wetq=1650) POCT-GLUCOSE [id number] 21:37:00 Test Item Value Reference Range Comments POC-GLUCOSE METER (BEAKER) 152 mg/dL 70-110 TESTED AT [address] (test cvon=0073) [place] [id number] GI PATHOGEN PROFILE BY [id number] 18:28:00 Test Item Value Reference Range Comments CAMPYLOBACTER (PCR) (test olhe=[id number]) Not detected Not detected PLESIOMONAS SHIGELLOIDES (PCR) (test Not detected Not detected ztow=6515884) SALMONELLA (PCR) (test yvch=2730160) Not detected Not detected YERSINIA ENTEROCOLITICA (PCR) (test Not detected Not detected mlds=4265805) VIBRIO CHOLERAE (PCR) (test mwjq=8852206) Not detected Not detected ENTEROAGGREGATIVE E. COLI (EAEC) BY PCR (test Not detected Not detected ksgl=1851028) ENTEROPATHOGENIC E. COLI (EPEC) BY PCR (test Not detected Not detected fvny=4427562) ENTEROTOXIGENIC E. COLI (ETEC) LT/ST BY PCR Not detected Not detected (test oxsh=7147585) SHIGA-LIKE TOXIN-PRODUCING E. COLI (STEC) Not detected Not detected STX1/STX2 (test aiqy=5549897) E. COLI O157 (PCR) (test thlv=2159963) Not detected SHIGELLA/ENTEROINVASIVE E. COLI (EIEC) BY PCR Not detected Not detected (test mdct=6162941) CRYPTOSPORIDIUM (PCR) (test rmyk=1481352) Not detected Not detected CYCLOSPORA CAYETANENSIS (PCR) (test Not detected Not detected bsak=1497823) ENTAMOEBA HISTOLYTICA (PCR) (test tnhq=4192332) Not detected Not detected GIARDIA LAMBLIA (PCR) (test xsua=7615400) Not detected Not detected ADENOVIRUS F 40/41 (PCR) (test psol=6941899) Not detected Not detected ASTROVIRUS (PCR) (test fhnr=9729362) Not detected Not detected NOROVIRUS GI/GII (PCR) (test xcqf=0661948) Not detected Not detected ROTAVIRUS A (PCR) (test efsf=9169768) Not detected Not detected SAPOVIRUS (I, II, IV, V) BY PCR (test Not detected Not detected qkch=2698069) VIBRIO (PARAHAEMOLYTICUS, VULNIFICUS) (test Not detected Not detected reru=9578222) Other viruses, parasites and bacteria not targeted by this PCR panel cannot be excluded; therefore clinical correlation and follow up of serology, culture results, and other molecular studies is required. The results are not intended to be used as the sole means for clinical diagnosis or patient management decisions. This sample was tested at the [facility] Molecular Diagnostics Laboratory using the [employer] Gastrointestinal Panel. It is FDA cleared and has been verified and approved by the [facility] Molecular Diagnostics Laboratory for clinical use. This laboratory is CLIA-certified and College ofAmerican Pathologists (CAP)-accredited to perform high complexity testing.POCT-GLUCOSE [id number] 16:30:00 Test Item Value Reference Range Comments POC-GLUCOSE METER (BEAKER) 166 mg/dL 70-110 TESTED AT [address] (test qcno=4417) [place] [address] POCT-GLUCOSE [id number] 12:45:00 Test Item Value Reference Range Comments POC-GLUCOSE METER (BEAKER) 150 mg/dL 70-110 TESTED AT [address] (test ebhz=7240) [place] [address] BASIC METABOLIC [id number] 09:41:00 Test Item Value Reference Range Comments SODIUM (BEAKER) (test 141 meq/L 136-145 viln=115) POTASSIUM (BEAKER) (test 3.4 meq/L 3.5-5.1 tind=463) CHLORIDE (BEAKER) (test 112 meq/L 98-107 ehll=892) CO2 (BEAKER) (test 19 meq/L 22-29 adtp=632) BLOOD UREA NITROGEN 28 mg/dL 7-21 (BEAKER) (test phtm=400) CREATININE (BEAKER) (test 6.06 mg/dL 0.57-1.25 fwdb=840) GLUCOSE RANDOM (BEAKER) 115 mg/dL 70-105 (test ffkl=665) CALCIUM (BEAKER) (test 7.4 mg/dL 8.4-10.2 nsmp=539) EGFR (BEAKER) (test 7 mL/min/1.73 sq m ESTIMATED GFR IS NOT rrwp=4416) ACCURATE CREATININE CLEARANCE IN PREDICTING GLOMERULAR FILTRATION RATE. ESTIMATED GFR IS NOT APPLICABLE FOR DIALYSIS PATIENTS. POCT-GLUCOSE [id number] 08:36:00 Test Item Value Reference Range Comments POC-GLUCOSE METER (BEAKER) 91 mg/dL 70-110 TESTED AT [address] (test mvka=6462) [place] [address] CBC W/PLT COUNT & AUTO [id number] 06:30:00 Test Item Value Reference Range Comments WHITE BLOOD CELL COUNT (BEAKER) (test bfer=461) 8.4 K/ L 3.5-10.5 RED BLOOD CELL COUNT (BEAKER) (test sagj=753) 3.10 M/ L 3.93-5.22 HEMOGLOBIN (BEAKER) (test svwe=892) 8.7 GM/DL 11.2-15.7 HEMATOCRIT (BEAKER) (test mddi=922) 27.9 % 34.1-44.9 MEAN CORPUSCULAR VOLUME (BEAKER) (test vftw=404) 90.0 fL 79.4-94.8 MEAN CORPUSCULAR HEMOGLOBIN (BEAKER) (test 28.1 pg 25.6-32.2 fdpt=811) MEAN CORPUSCULAR HEMOGLOBIN CONC (BEAKER) (test 31.2 GM/DL 32.2-35.5 fhrf=459) RED CELL DISTRIBUTION WIDTH (BEAKER) (test 15.8 % 11.7-14.4 mnes=928) PLATELET COUNT (BEAKER) (test sgkc=013) 312 K/CU MM 150-450 MEAN PLATELET VOLUME (BEAKER) (test dtqh=836) 9.4 fL 9.4-12.3 NUCLEATED RED BLOOD CELLS (BEAKER) (test 0 /100 WBC 0-0 rwvo=288) NEUTROPHILS RELATIVE PERCENT (BEAKER) (test 68 % bwhw=457) LYMPHOCYTES RELATIVE PERCENT (BEAKER) (test 19 % gzbw=409) MONOCYTES RELATIVE PERCENT (BEAKER) (test 8 % jezx=156) EOSINOPHILS RELATIVE PERCENT (BEAKER) (test 4 % zpvk=447) BASOPHILS RELATIVE PERCENT (BEAKER) (test 0 % irwl=699) NEUTROPHILS ABSOLUTE COUNT (BEAKER) (test 5.72 K/ L 1.56-6.13 haso=809) LYMPHOCYTES ABSOLUTE COUNT (BEAKER) (test 1.57 K/ L 1.18-3.74 pbvr=118) MONOCYTES ABSOLUTE COUNT (BEAKER) (test 0.66 K/ L 0.24-0.36 cyar=708) EOSINOPHILS ABSOLUTE COUNT (BEAKER) (test 0.36 K/ L 0.04-0.36 qvvv=858) BASOPHILS ABSOLUTE COUNT (BEAKER) (test 0.03 K/ L 0.01-0.08 rvdi=087) IMMATURE GRANULOCYTES-RELATIVE PERCENT (BEAKER) 0 % 0-1 (test vxxm=7535) POCT-GLUCOSE [id number] 21:14:00 Test Item Value Reference Range Comments POC-GLUCOSE METER (BEAKER) 121 mg/dL 70-[address] [facility] [address] [facility] (test avkr=6233) [facility] [address] C. DIFFICILE GDH [id number] 19:45:00 Test Item Value Reference Range Comments CDT TOXIN (test Negative Negative vyhn=[id number]) CDT GDH ANTIGEN (test Negative Negative No indication of Clostridium hgwh=[id number]) difficile infection and no colonization. Discontinue enteric isolation and therapy. Testing performed by [employer] Rapid Cassette Assay. For GDH, published sensitivity of the assay is 98.7% compared to cytotoxicity testing. For Toxin AB, published sensitivity is 87.8% and specificity 99.4% compared to cytotoxicity testing.Verification of kit performance was done by the [facility] Microbiology Lab prior to clinical use.POCT-GLUCOSE [id number] 18:16:00 Test Item Value Reference Range Comments POC-GLUCOSE METER (BEAKER) 159 mg/dL 70-110 TESTED AT [address] (test pkzw=2314) [place] [address] POCT-GLUCOSE [id number] 12:21:00 Test Item Value Reference Range Comments POC-GLUCOSE METER (BEAKER) 147 mg/dL 70-110 TESTED AT [address] (test bbsd=9047) [place] [address] POCT-GLUCOSE [id number] 08:36:00 Test Item Value Reference Range Comments POC-GLUCOSE METER (BEAKER) 108 mg/dL 70-110 TESTED AT [address] (test uzmr=7400) [place] [address] BASIC METABOLIC [id number] 07:30:00 Test Item Value Reference Range Comments SODIUM (BEAKER) (test 141 meq/L 136-145 irvb=188) POTASSIUM (BEAKER) (test 3.2 meq/L 3.5-5.1 bqak=205) CHLORIDE (BEAKER) (test 113 meq/L 98-107 vsdi=012) CO2 (BEAKER) (test 21 meq/L 22-29 jfwk=093) BLOOD UREA NITROGEN 30 mg/dL 7-21 (BEAKER) (test iutq=668) CREATININE (BEAKER) (test 6.11 mg/dL 0.57-1.25 juux=082) GLUCOSE RANDOM (BEAKER) 109 mg/dL 70-105 (test xxad=854) CALCIUM (BEAKER) (test 7.4 mg/dL 8.4-10.2 zulz=000) EGFR (BEAKER) (test 7 mL/min/1.73 sq m ESTIMATED GFR IS NOT trli=3426) ACCURATE CREATININE CLEARANCE IN PREDICTING GLOMERULAR FILTRATION RATE. ESTIMATED GFR IS NOT APPLICABLE FOR DIALYSIS PATIENTS. CBC W/PLT COUNT & AUTO [id number] 07:09:00 Test Item Value Reference Range Comments WHITE BLOOD CELL COUNT (BEAKER) (test jwtl=563) 9.2 K/ L 3.5-10.5 RED BLOOD CELL COUNT (BEAKER) (test cerg=660) 3.09 M/ L 3.93-5.22 HEMOGLOBIN (BEAKER) (test toas=945) 8.7 GM/DL 11.2-15.7 HEMATOCRIT (BEAKER) (test vzuc=419) 27.5 % 34.1-44.9 MEAN CORPUSCULAR VOLUME (BEAKER) (test uqvq=849) 89.0 fL 79.4-94.8 MEAN CORPUSCULAR HEMOGLOBIN (BEAKER) (test 28.2 pg 25.6-32.2 rqzz=973) MEAN CORPUSCULAR HEMOGLOBIN CONC (BEAKER) (test 31.6 GM/DL 32.2-35.5 cwyb=506) RED CELL DISTRIBUTION WIDTH (BEAKER) (test 15.5 % 11.7-14.4 ufmc=327) PLATELET COUNT (BEAKER) (test tmtj=424) 312 K/CU MM 150-450 MEAN PLATELET VOLUME (BEAKER) (test idbt=670) 9.4 fL 9.4-12.3 NUCLEATED RED BLOOD CELLS (BEAKER) (test 0 /100 WBC 0-0 mpvg=528) NEUTROPHILS RELATIVE PERCENT (BEAKER) (test 76 % pavx=399) LYMPHOCYTES RELATIVE PERCENT (BEAKER) (test 13 % ljkl=436) MONOCYTES RELATIVE PERCENT (BEAKER) (test 7 % qiqu=536) EOSINOPHILS RELATIVE PERCENT (BEAKER) (test 4 % awaq=762) BASOPHILS RELATIVE PERCENT (BEAKER) (test 0 % cdzm=495) NEUTROPHILS ABSOLUTE COUNT (BEAKER) (test 6.96 K/ L 1.56-6.13 qisn=441) LYMPHOCYTES ABSOLUTE COUNT (BEAKER) (test 1.19 K/ L 1.18-3.74 kdrs=620) MONOCYTES ABSOLUTE COUNT (BEAKER) (test 0.67 K/ L 0.24-0.36 eqek=062) EOSINOPHILS ABSOLUTE COUNT (BEAKER) (test 0.33 K/ L 0.04-0.36 otga=736) BASOPHILS ABSOLUTE COUNT (BEAKER) (test 0.02 K/ L 0.01-0.08 ftsg=168) IMMATURE GRANULOCYTES-RELATIVE PERCENT (BEAKER) 0 % 0-1 (test bvmw=6481) POCT-GLUCOSE [id number] 21:52:00 Test Item Value Reference Range Comments POC-GLUCOSE METER (BEAKER) 133 mg/dL 70-[address] [facility] [address] [facility] (test pvds=5971) [facility] [address] POCT-GLUCOSE [id number] 16:52:00 Test Item Value Reference Range Comments POC-GLUCOSE METER (BEAKER) 141 mg/dL 70-110 TESTED AT [address] (test ouuy=2456) [facility] [address] BASIC METABOLIC [id number] 07:14:00 Test Item Value Reference Range Comments SODIUM (BEAKER) (test 142 meq/L 136-145 mqan=385) POTASSIUM (BEAKER) (test 3.6 meq/L 3.5-5.1 pmmt=855) CHLORIDE (BEAKER) (test 112 meq/L 98-107 rqqp=969) CO2 (BEAKER) (test 23 meq/L 22-29 rqiw=382) BLOOD UREA NITROGEN 30 mg/dL 7-21 (BEAKER) (test itjl=598) CREATININE (BEAKER) (test 6.21 mg/dL 0.57-1.25 udaw=181) GLUCOSE RANDOM (BEAKER) 103 mg/dL 70-105 (test emvl=756) CALCIUM (BEAKER) (test 7.4 mg/dL 8.4-10.2 xnhj=394) EGFR (BEAKER) (test 7 mL/min/1.73 sq m ESTIMATED GFR IS NOT qexc=0408) ACCURATE CREATININE CLEARANCE IN PREDICTING GLOMERULAR FILTRATION RATE. ESTIMATED GFR IS NOT APPLICABLE FOR DIALYSIS PATIENTS. CBC W/PLT COUNT & AUTO [id number] 06:55:00 Test Item Value Reference Range Comments WHITE BLOOD CELL COUNT (BEAKER) (test jwah=554) 9.0 K/ L 3.5-10.5 RED BLOOD CELL COUNT (BEAKER) (test mgsu=513) 3.29 M/ L 3.93-5.22 HEMOGLOBIN (BEAKER) (test vrup=095) 9.1 GM/DL 11.2-15.7 HEMATOCRIT (BEAKER) (test cwaf=368) 29.2 % 34.1-44.9 MEAN CORPUSCULAR VOLUME (BEAKER) (test zsva=623) 88.8 fL 79.4-94.8 MEAN CORPUSCULAR HEMOGLOBIN (BEAKER) (test 27.7 pg 25.6-32.2 djtw=924) MEAN CORPUSCULAR HEMOGLOBIN CONC (BEAKER) (test 31.2 GM/DL 32.2-35.5 gbgx=521) RED CELL DISTRIBUTION WIDTH (BEAKER) (test 15.6 % 11.7-14.4 wilo=385) PLATELET COUNT (BEAKER) (test zxds=634) 307 K/CU MM 150-450 MEAN PLATELET VOLUME (BEAKER) (test qevu=346) 9.5 fL 9.4-12.3 NUCLEATED RED BLOOD CELLS (BEAKER) (test 0 /100 WBC 0-0 ajqp=627) NEUTROPHILS RELATIVE PERCENT (BEAKER) (test 74 % xpjl=565) LYMPHOCYTES RELATIVE PERCENT (BEAKER) (test 15 % rhah=016) MONOCYTES RELATIVE PERCENT (BEAKER) (test 7 % jdjz=777) EOSINOPHILS RELATIVE PERCENT (BEAKER) (test 3 % eyhm=955) BASOPHILS RELATIVE PERCENT (BEAKER) (test 0 % guvn=339) NEUTROPHILS ABSOLUTE COUNT (BEAKER) (test 6.64 K/ L 1.56-6.13 hmsg=511) LYMPHOCYTES ABSOLUTE COUNT (BEAKER) (test 1.39 K/ L 1.18-3.74 ftlr=280) MONOCYTES ABSOLUTE COUNT (BEAKER) (test 0.61 K/ L 0.24-0.36 nmma=209) EOSINOPHILS ABSOLUTE COUNT (BEAKER) (test 0.31 K/ L 0.04-0.36 gnzn=958) BASOPHILS ABSOLUTE COUNT (BEAKER) (test 0.03 K/ L 0.01-0.08 jasq=389) IMMATURE GRANULOCYTES-RELATIVE PERCENT (BEAKER) 0 % 0-1 (test yacl=3742) POCT-GLUCOSE [id number] 08:13:00 Test Item Value Reference Range Comments POC-GLUCOSE METER (BEAKER) 134 mg/dL 70-[address] [facility] [address] [facility] (test hsbm=5006) [facility] [address] CBC W/PLT COUNT & AUTO [id number] 07:13:00 Test Item Value Reference Range Comments WHITE BLOOD CELL COUNT (BEAKER) (test kowg=045) 8.1 K/ L 3.5-10.5 RED BLOOD CELL COUNT (BEAKER) (test njps=055) 3.06 M/ L 3.93-5.22 HEMOGLOBIN (BEAKER) (test uvpk=656) 8.6 GM/DL 11.2-15.7 HEMATOCRIT (BEAKER) (test pgjj=909) 26.9 % 34.1-44.9 MEAN CORPUSCULAR VOLUME (BEAKER) (test efdp=527) 87.9 fL 79.4-94.8 MEAN CORPUSCULAR HEMOGLOBIN (BEAKER) (test 28.1 pg 25.6-32.2 tbyl=024) MEAN CORPUSCULAR HEMOGLOBIN CONC (BEAKER) (test 32.0 GM/DL 32.2-35.5 bqeh=724) RED CELL DISTRIBUTION WIDTH (BEAKER) (test 15.7 % 11.7-14.4 reje=396) PLATELET COUNT (BEAKER) (test evuz=487) 290 K/CU MM 150-450 MEAN PLATELET VOLUME (BEAKER) (test ibas=813) 10.3 fL 9.4-12.3 NUCLEATED RED BLOOD CELLS (BEAKER) (test 0 /100 WBC 0-0 dbpb=565) NEUTROPHILS RELATIVE PERCENT (BEAKER) (test 73 % cqba=503) LYMPHOCYTES RELATIVE PERCENT (BEAKER) (test 16 % lojh=346) MONOCYTES RELATIVE PERCENT (BEAKER) (test 7 % qotk=594) EOSINOPHILS RELATIVE PERCENT (BEAKER) (test 3 % redc=783) BASOPHILS RELATIVE PERCENT (BEAKER) (test 0 % hufw=781) NEUTROPHILS ABSOLUTE COUNT (BEAKER) (test 5.88 K/ L 1.56-6.13 zjzt=603) LYMPHOCYTES ABSOLUTE COUNT (BEAKER) (test 1.29 K/ L 1.18-3.74 lutu=921) MONOCYTES ABSOLUTE COUNT (BEAKER) (test 0.56 K/ L 0.24-0.36 vllf=002) EOSINOPHILS ABSOLUTE COUNT (BEAKER) (test 0.27 K/ L 0.04-0.36 wmro=360) BASOPHILS ABSOLUTE COUNT (BEAKER) (test 0.03 K/ L 0.01-0.08 lshp=388) IMMATURE GRANULOCYTES-RELATIVE PERCENT (BEAKER) 1 % 0-1 (test qjee=3648) CARCINOEMBRYONIC ANTIGEN (CEA)2018-06-14 06:43:00 Test Item Value Reference Range Comments CARCINOEMBRYONIC ANTIGEN (BEAKER) (test bitb=345) 3.7 ng/mL 0.0-5.0 BASIC METABOLIC [id number] 06:38:00 Test Item Value Reference Range Comments SODIUM (BEAKER) (test 141 meq/L 136-145 jnob=803) POTASSIUM (BEAKER) (test 3.5 meq/L 3.5-5.1 eevy=722) CHLORIDE (BEAKER) (test 113 meq/L 98-107 pycv=949) CO2 (BEAKER) (test 20 meq/L 22-29 wtjt=999) BLOOD UREA NITROGEN 31 mg/dL 7-21 (BEAKER) (test cwus=779) CREATININE (BEAKER) (test 6.23 mg/dL 0.57-1.25 zcbw=970) GLUCOSE RANDOM (BEAKER) 130 mg/dL 70-105 (test rgpb=801) CALCIUM (BEAKER) (test 7.2 mg/dL 8.4-10.2 uvmf=868) EGFR (BEAKER) (test 7 mL/min/1.73 sq m ESTIMATED GFR IS NOT idks=6869) ACCURATE CREATININE CLEARANCE IN PREDICTING GLOMERULAR FILTRATION RATE. ESTIMATED GFR IS NOT APPLICABLE FOR DIALYSIS PATIENTS. POCT-GLUCOSE [id number] 21:27:00 Test Item Value Reference Range Comments POC-GLUCOSE METER (BEAKER) 165 mg/dL 70-110 TESTED AT [address] (test wbtr=0592) [facility] [address] HEMOGLOBIN AND [id number] 18:59:00 Test Item Value Reference Range Comments HEMOGLOBIN (BEAKER) (test vfko=082) 9.0 GM/DL 11.2-15.7 HEMATOCRIT (BEAKER) (test kwjc=043) 28.5 % 34.1-44.9 Post transfusionPOCT-GLUCOSE [id number] 18:15:00 Test Item Value Reference Range Comments POC-GLUCOSE METER (BEAKER) 186 mg/dL 70-110 TESTED AT [address] (test jbsj=8084) [place] [id number] POCT-GLUCOSE [id number] 13:04:00 Test Item Value Reference Range Comments POC-GLUCOSE METER (BEAKER) 117 mg/dL 70-[address] [facility] [address] [facility] (test qzdk=7072) [facility] [address] POCT-GLUCOSE [id number] 09:25:00 Test Item Value Reference Range Comments POC-GLUCOSE METER (BEAKER) 99 mg/dL 70-[address] [facility] [address] [facility] (test alvt=2491) [facility] [address] CBC W/PLT COUNT & AUTO [id number] 06:53:00 Test Item Value Reference Range Comments WHITE BLOOD CELL COUNT (BEAKER) (test woid=000) 7.1 K/ L 3.5-10.5 RED BLOOD CELL COUNT (BEAKER) (test gxrg=272) 2.51 M/ L 3.93-5.22 HEMOGLOBIN (BEAKER) (test gqwc=400) 6.9 GM/DL 11.2-15.7 HEMATOCRIT (BEAKER) (test htuz=106) 22.4 % 34.1-44.9 MEAN CORPUSCULAR VOLUME (BEAKER) (test ikts=529) 89.2 fL 79.4-94.8 MEAN CORPUSCULAR HEMOGLOBIN (BEAKER) (test 27.5 pg 25.6-32.2 ypnz=694) MEAN CORPUSCULAR HEMOGLOBIN CONC (BEAKER) (test 30.8 GM/DL 32.2-35.5 jqfd=459) RED CELL DISTRIBUTION WIDTH (BEAKER) (test 15.9 % 11.7-14.4 bdcd=606) PLATELET COUNT (BEAKER) (test ssrw=950) 239 K/CU MM 150-450 MEAN PLATELET VOLUME (BEAKER) (test slkk=975) 9.9 fL 9.4-12.3 NUCLEATED RED BLOOD CELLS (BEAKER) (test 0 /100 WBC 0-0 frxh=307) NEUTROPHILS RELATIVE PERCENT (BEAKER) (test 62 % szeo=716) LYMPHOCYTES RELATIVE PERCENT (BEAKER) (test 22 % yuus=191) MONOCYTES RELATIVE PERCENT (BEAKER) (test 10 % cakp=897) EOSINOPHILS RELATIVE PERCENT (BEAKER) (test 5 % korf=991) BASOPHILS RELATIVE PERCENT (BEAKER) (test 0 % bvlj=463) NEUTROPHILS ABSOLUTE COUNT (BEAKER) (test 4.41 K/ L 1.56-6.13 ngaf=058) LYMPHOCYTES ABSOLUTE COUNT (BEAKER) (test 1.58 K/ L 1.18-3.74 uaae=101) MONOCYTES ABSOLUTE COUNT (BEAKER) (test 0.69 K/ L 0.24-0.36 mhku=329) EOSINOPHILS ABSOLUTE COUNT (BEAKER) (test 0.35 K/ L 0.04-0.36 bnhm=784) BASOPHILS ABSOLUTE COUNT (BEAKER) (test 0.03 K/ L 0.01-0.08 huhk=370) IMMATURE GRANULOCYTES-RELATIVE PERCENT (BEAKER) 1 % 0-1 (test ppof=7299) POCT-GLUCOSE [id number] 18:20:00 Test Item Value Reference Range Comments POC-GLUCOSE METER (BEAKER) 206 mg/dL 70-110 TESTED AT [address] (test etjq=6031) [place] [id number] POCT-GLUCOSE [id number] 13:23:00 Test Item Value Reference Range Comments POC-GLUCOSE METER (BEAKER) 102 mg/dL 70-110 TESTED AT [address] (test bywy=0180) [place] [id number] POCT-GLUCOSE [id number] 08:34:00 Test Item Value Reference Range Comments POC-GLUCOSE METER (BEAKER) 110 mg/dL 70-110 TESTED AT [address] (test xama=6058) [facility] [id number] BASIC METABOLIC [id number] 07:26:00 Test Item Value Reference Range Comments SODIUM (BEAKER) (test 139 meq/L 136-145 dmml=673) POTASSIUM (BEAKER) (test 3.2 meq/L 3.5-5.1 jice=297) CHLORIDE (BEAKER) (test 114 meq/L 98-107 zpyf=733) CO2 (BEAKER) (test 17 meq/L 22-29 fmrh=853) BLOOD UREA NITROGEN 36 mg/dL 7-21 (BEAKER) (test jraq=922) CREATININE (BEAKER) (test 7.60 mg/dL 0.57-1.25 ifhp=476) GLUCOSE RANDOM (BEAKER) 92 mg/dL 70-105 (test pvlx=264) CALCIUM (BEAKER) (test 6.6 mg/dL 8.4-10.2 nblp=908) EGFR (BEAKER) (test 5 mL/min/1.73 sq m ESTIMATED GFR IS NOT hbct=9175) ACCURATE CREATININE CLEARANCE IN PREDICTING GLOMERULAR FILTRATION RATE. ESTIMATED GFR IS NOT APPLICABLE FOR DIALYSIS PATIENTS. [id number] 07:19:00 Test Item Value Reference Range Comments PHOSPHORUS (BEAKER) (test bbxx=089) 5.7 mg/dL 2.3-4.7 [id number] 07:19:00 Test Item Value Reference Range Comments MAGNESIUM (BEAKER) (test mnlp=551) 1.3 mg/dL 1.6-2.6 CBC W/PLT COUNT & AUTO [id number] 06:47:00 Test Item Value Reference Range Comments WHITE BLOOD CELL COUNT (BEAKER) (test worg=610) 6.9 K/ L 3.5-10.5 RED BLOOD CELL COUNT (BEAKER) (test cbdx=359) 2.63 M/ L 3.93-5.22 HEMOGLOBIN (BEAKER) (test owem=088) 7.2 GM/DL 11.2-15.7 HEMATOCRIT (BEAKER) (test nsrv=616) 23.1 % 34.1-44.9 MEAN CORPUSCULAR VOLUME (BEAKER) (test qgkt=445) 87.8 fL 79.4-94.8 MEAN CORPUSCULAR HEMOGLOBIN (BEAKER) (test 27.4 pg 25.6-32.2 xsei=859) MEAN CORPUSCULAR HEMOGLOBIN CONC (BEAKER) (test 31.2 GM/DL 32.2-35.5 nohw=130) RED CELL DISTRIBUTION WIDTH (BEAKER) (test 16.1 % 11.7-14.4 vrxk=306) PLATELET COUNT (BEAKER) (test rphu=734) 236 K/CU MM 150-450 MEAN PLATELET VOLUME (BEAKER) (test eysm=920) 10.3 fL 9.4-12.3 NUCLEATED RED BLOOD CELLS (BEAKER) (test 0 /100 WBC 0-0 peip=147) NEUTROPHILS RELATIVE PERCENT (BEAKER) (test 64 % pyhk=955) LYMPHOCYTES RELATIVE PERCENT (BEAKER) (test 22 % xkqr=778) MONOCYTES RELATIVE PERCENT (BEAKER) (test 9 % xxio=429) EOSINOPHILS RELATIVE PERCENT (BEAKER) (test 4 % vapt=986) BASOPHILS RELATIVE PERCENT (BEAKER) (test 0 % uycg=676) NEUTROPHILS ABSOLUTE COUNT (BEAKER) (test 4.38 K/ L 1.56-6.13 kalw=126) LYMPHOCYTES ABSOLUTE COUNT (BEAKER) (test 1.54 K/ L 1.18-3.74 ezum=390) MONOCYTES ABSOLUTE COUNT (BEAKER) (test 0.61 K/ L 0.24-0.36 tbnx=203) EOSINOPHILS ABSOLUTE COUNT (BEAKER) (test 0.30 K/ L 0.04-0.36 fwpk=501) BASOPHILS ABSOLUTE COUNT (BEAKER) (test 0.02 K/ L 0.01-0.08 svqw=048) IMMATURE GRANULOCYTES-RELATIVE PERCENT (BEAKER) 0 % 0-1 (test ukdb=1945) POCT-GLUCOSE [id number] 23:02:00 Test Item Value Reference Range Comments POC-GLUCOSE METER (BEAKER) 112 mg/dL 70-110 TESTED AT [address] (test grkx=7274) [place] [address] U/S, RENAL, [id number] 20:20:00Reason for exam:->R/o obstruction, ANGELA on ckdFINAL REPORT Renal ultrasound, 06/11/2018. History: Acute kidney injury. Findings:Sonographic evaluation of the kidneys was performed. Right kidney: 10.7 cm in length, normal in size, with cortical thickness of 1.1 cm. Normal cortical echogenicity. No mass. No calculus. Nohydronephrosis. Left kidney: 9.5 cm in length, normal in size, with cortical thickness of 1.2 cm. Normal cortical echogenicity. No mass. No calculus. No hydronephrosis. Urinary bladder: Unremarkable. Vasculature: Color Doppler survey demonstrates patency of main renal artery and vein bilaterally.Impression :Normal renal ultrasound. Signed: Mansih Pappas MDReport Verified Date/Time: 06/11/201820:20:56 Reading Location: [facility] C0[facility] Consult Reading Room POCT-GLUCOSE [id number] 18:34:00 Test Item Value Reference Range Comments POC-GLUCOSE METER (BEAKER) 194 mg/dL 70-110 TESTED AT [address] (test nolq=5222) [place] [address] PROTEIN, RANDOM [id number] 18:25:00 Test Item Value Reference Range Comments PROTEIN, URINE (BEAKER) (test kiyg=6262) 535 mg/dL 0-14 CREATININE, RANDOM [id number] 16:56:00 Test Item Value Reference Range Comments CREATININE URINE (BEAKER) (test gauh=829) 95.3 mg/dL Reference Range: No NormalsSODIUM, RANDOM [id number] 16:56:00 Test Item Value Reference Range Comments SODIUM URINE (BEAKER) (test knvb=787) 57 meq/L Reference Range: No NormalsUREA NITROGEN, RANDOM [id number] 16:56:00 Test Item Value Reference Range Comments UREA NITROGEN URINE (BEAKER) (test pdly=210) 230 mg/dL Reference Range: No NormalsURINALYSIS [id number] 16:29:00 Test Item Value Reference Range Comments RBC UA (BEAKER) (test rfot=405) 1 /HPF WBC UA (BEAKER) (test iqil=595) 6 /HPF SQUAMOUS EPITHELIAL (BEAKER) (test tpeq=646) 1 /HPF URINALYSIS WITH MICROSCOPIC IF [id number] 16:26:00 Test Item Value Reference Range Comments COLOR (BEAKER) (test ercm=731) Light Yellow CLARITY (BEAKER) (test jktg=585) Clear SPECIFIC GRAVITY UA (BEAKER) (test tuly=274) 1.008 1.001-1.035 PH UA (BEAKER) (test hjxo=804) 6.5 5.0-8.0 PROTEIN UA (BEAKER) (test achl=971) 300 mg/dL Negative GLUCOSE UA (BEAKER) (test oayb=868) 100 mg/dL Negative KETONES UA (BEAKER) (test olfs=460) Negative Negative BILIRUBIN UA (BEAKER) (test dmni=408) Negative Negative BLOOD UA (BEAKER) (test hwql=868) Small Negative NITRITE UA (BEAKER) (test cwrx=200) Negative Negative LEUKOCYTE ESTERASE UA (BEAKER) (test vfxs=478) Trace Negative UROBILINOGEN UA (BEAKER) (test mbny=061) 0.2 mg/dL 0.2-1.0 SOURCE(BEAKER) (test qswc=3159) [id number] 16:14:00 Test Item Value Reference Range Comments FERRITIN (BEAKER) (test ljcx=235) 78 ng/mL 5-275 VITAMIN D, [id number] 14:53:00 Test Item Value Reference Range Comments VITAMIN D 25-OH (BEAKER) (test gprj=9697) 17.4 ng/mL 6.6-49.9 Effective 02/04/2017: Reference Range ChangeNew: 6.6-49.9 ng/mL Previous: 13.0 -47.8 ng/mLRecommended Vitamin D Target Range: 30.0-40.0 ng/mLHEMOGLOBIN [id number] 14:46:00 Test Item Value Reference Range Comments HEMOGLOBIN A1C (BEAKER) (test qqej=197) 5.1 % 4.3-6.1 PTH, [id number] 14:39:00 Test Item Value Reference Range Comments PARATHYROID HORMONE INTACT (BEAKER) (test 809.3 pg/mL 8.5-72.5 zliz=698) IRON, TIBC, % SAT. (WITHOUT FERRITIN)2018-06-11 14:33:00 Test Item Value Reference Range Comments IRON (BEAKER) (test csvt=712) 55.0 ug/dL 40.0-160.0 TOTAL IRON BINDING CAPACITY (BEAKER) (test 140 ug/dL 250-450 fbpt=686) IRON % SATURATION (2) (BEAKER) (test onyd=5387) 39 % 20-55 POCT-GLUCOSE [id number] 13:15:00 Test Item Value Reference Range Comments POC-GLUCOSE METER (BEAKER) 113 mg/dL 70-110 TESTED AT [address] (test eboo=0254) [facility] [address] RAD, CHEST, 1 VIEW, NON [id number] 10:39:00Reason for exam:->pleural effusions, pericardial effusionShould this be performed at the bedside?-> YesFINAL REPORT Chest x-ray Clinical History: pleural effusions, pericardial effusion Comparison: No comparison Views: [place] Chest x -ray:The cardiac and mediastinal silhouettes are prominent with a left ventricular configuration. There is no evidence of a pneumothorax. There isno evidence of a large pleural effusion. There [...] the right cardiophrenic sulcus. Signed: Jackie Frias MDReport Verified Date/Time: 06/11/2018 10:39:13 Reading Location: [facility] Reading Room 10: 39 AMPOCT-GLUCOSE [id number] 09:01:00 Test Item Value Reference Range Comments POC-GLUCOSE METER (BEAKER) 95 mg/dL 70-[address] [facility] [address] [facility] (test uktd=5670) [facility] [address] CARCINOEMBRYONIC ANTIGEN (CEA)2018-06-11 03:49:00 Test Item Value Reference Range Comments CARCINOEMBRYONIC ANTIGEN (BEAKER) (test gyzv=207) 3.5 ng/mL 0.0-5.0 BASIC METABOLIC [id number] 03:33:00 Test Item Value Reference Range Comments SODIUM (BEAKER) (test 138 meq/L 136-145 lxnj=477) POTASSIUM (BEAKER) (test 3.5 meq/L 3.5-5.1 icow=844) CHLORIDE (BEAKER) (test 113 meq/L 98-107 axnr=893) CO2 (BEAKER) (test 15 meq/L 22-29 kcdd=333) BLOOD UREA NITROGEN 40 mg/dL 7-21 (BEAKER) (test qgpl=623) CREATININE (BEAKER) (test 8.49 mg/dL 0.57-1.25 riyy=668) GLUCOSE RANDOM (BEAKER) 121 mg/dL 70-105 (test faqu=975) CALCIUM (BEAKER) (test 6.6 mg/dL 8.4-10.2 lrvb=634) EGFR (BEAKER) (test 5 mL/min/1.73 sq m ESTIMATED GFR IS NOT fnaw=8004) ACCURATE CREATININE CLEARANCE IN PREDICTING GLOMERULAR FILTRATION RATE. ESTIMATED GFR IS NOT APPLICABLE FOR DIALYSIS PATIENTS. [id number] 03:30:00 Test Item Value Reference Range Comments PREALBUMIN (BEAKER) (test biba=082) 9 mg/dL 14-45 [id number] 03:28:00 Test Item Value Reference Range Comments MAGNESIUM (BEAKER) (test hvdo=263) 1.5 mg/dL 1.6-2.6 [id number] 03:28:00 Test Item Value Reference Range Comments PHOSPHORUS (BEAKER) (test njky=948) 6.2 mg/dL 2.3-4.7 HEPATIC FUNCTION [id number] 03:28:00 Test Item Value Reference Range Comments TOTAL PROTEIN (BEAKER) (test kyuy=087) 5.0 gm/dL 6.0-8.3 ALBUMIN (BEAKER) (test lrxs=2937) 2.0 g/dL 3.5-5.0 BILIRUBIN TOTAL (BEAKER) (test fwlw=528) 0.2 mg/dL 0.2-1.2 BILIRUBIN DIRECT (BEAKER) (test qqec=999) 0.1 mg/dL 0.1-0.5 ALKALINE PHOSPHATASE (BEAKER) (test xhdj=059) 74 U/L 40-150 AST (SGOT) (BEAKER) (test bmyv=427) 13 U/L 5-34 ALT (SGPT) (BEAKER) (test heau=457) 9 U/L 6-55 PROTHROMBIN TIME/[id number] 03:22:00 Test Item Value Reference Range Comments PROTIME (BEAKER) (test yrqp=081) 15.2 seconds 11.7-14.7 INR (BEAKER) (test mrid=460) 1.2 <=5.9 RECOMMENDED COUMADIN/WARFARIN INR THERAPY RANGESSTANDARD DOSE: 2.0 - 3.0 Includes: PROPHYLAXIS forvenous thrombosis, systemic embolization; TREATMENT for venous thrombosis and/or pulmonary embolus.HIGH RISK: Target INR is 2.5-3.5 for patients with mechanical heart valves.CBC (HEMOGRAM ONLY)2018-06-11 03:05:00 Test Item Value Reference Range Comments WHITE BLOOD CELL COUNT (BEAKER) (test pthc=974) 7.1 K/ L 3.5-10.5 RED BLOOD CELL COUNT (BEAKER) (test yamw=453) 2.60 M/ L 3.93-5.22 HEMOGLOBIN (BEAKER) (test pivs=104) 7.1 GM/DL 11.2-15.7 HEMATOCRIT (BEAKER) (test iyzg=128) 22.9 % 34.1-44.9 MEAN CORPUSCULAR VOLUME (BEAKER) (test qeux=316) 88.1 fL 79.4-94.8 MEAN CORPUSCULAR HEMOGLOBIN (BEAKER) (test 27.3 pg 25.6-32.2 xddf=371) MEAN CORPUSCULAR HEMOGLOBIN CONC (BEAKER) (test 31.0 GM/DL 32.2-35.5 zekr=528) RED CELL DISTRIBUTION WIDTH (BEAKER) (test 16.0 % 11.7-14.4 pjqi=408) PLATELET COUNT (BEAKER) (test jbqd=031) 200 K/CU MM 150-450 MEAN PLATELET VOLUME (BEAKER) (test iiri=978) 10.3 fL 9.4-12.3 NUCLEATED RED BLOOD CELLS (BEAKER) (test 0 /100 WBC 0-0 obpa=351)
[2018-08-09 00:02] LABS: Absolute Lymphocytes (CBC) 1.4 K/uL (0.7-4.9); Absolute Monocytes 0.8 K/uL (0.1-1.3); Basophils % 0.4 % (0-1.3); Eosinophils % 4.8 % (0-4.4); Hematocrit 24.9 % (36.0-45.0); Lymphocytes % 14.2 % (15.3-44.8); MPV 7.9 fL (7.6-11.3); RBC Red Blood Cell Count 2.85 M/uL (3.86-4.86)
[2018-08-09 00:05] LABS: Protime INR 0.94
[2018-08-09 00:21] LABS: Albumin 1.5 g/dL (3.4-5.0); Bilirubin Direct 0.1 mg/dL (0-0.2); Bilirubin Total 0.2 mg/dL (0.2-1.0); Potassium 4.7 mmol/L (3.5-5.1); Protein, Total 5.7 g/dL (6.4-8.2)
--- NOTE | 2018-08-09 01:38 | ER ---
Nurse's Notes [facility] Name: Yumiko Berumen Age: 62 yrs Sex: Female : 1955 Arrival Date: 08/08/2018 Time: 22:52 Bed 17 Private MD: Diagnosis: Melena;Gastrointestinal bleeding;Chronic kidney disease, unspecified Presentation: 08/08 23:11 Presenting complaint: Patient states: she has had rectal bleeding for 10 days and is ca1 dark in color. Today there are blood clots when she goes to the toilet. Transition of care: patient was not received from another setting of care. Onset of symptoms was August 08, 2018. Risk Assessment: Do you want to hurt yourself or someone else? Patient reports no desire to harm self or others. Initial Sepsis Screen: Does the patient meet any 2 criteria? No. Patient's initial sepsis screen is negative. Does the patient have a suspected source of infection? No. Patient's initial sepsis screen is negative. Care prior to arrival: None. 23:11 Method Of Arrival: Ambulatory ca1 23:11 Acuity: RAFA 3 ca1 Triage Assessment: 23:29 General: Appears in no apparent distress. comfortable, Behavior is calm, cooperative, ca1 appropriate for age. Pain: Complains of pain in abdomen. Historical: - Allergies: 23:29 No Known Allergies; ca1 - Home Meds: 23:29 Metoprolol Tartrate Oral [Active]; ca1 - PMHx: 23:29 Diabetes - IDDM; Hyperlipidemia; Hypertension; ca1 - PSHx: 23:29 None; ca1 - Immunization history:: Adult Immunizations not up to date. - Social history:: Smoking status: Patient/guardian denies using tobacco. - Ebola Screening: : No symptoms or risks identified at this time. - Family history:: not pertinent. - Hospitalizations: : Patient was recently seen at. Screenin:11 Abuse screen: Denies threats or abuse. Denies injuries from another. Has been ca1 threatened or abused. Nutritional screening: No deficits noted. Tuberculosis screening: No symptoms or risk factors identified. Fall Risk None identified. Assessment: 23:15 General: Appears in no apparent distress. comfortable, Behavior is calm, cooperative, ca1 appropriate for age. Pain: Complains of pain in abdomen Pain does not radiate. Pain currently is 2 out of 10 on a pain scale. Pain began 10 days ago. Neuro: Level of Consciousness is awake, alert, obeys commands, Oriented to person, place, time, situation. Cardiovascular: Heart tones S1 S2 present Capillary refill < 3 seconds Patient's skin is warm and dry. Respiratory: Airway is patent Respiratory effort is even, unlabored, Respiratory pattern is regular, symmetrical, Breath sounds are clear bilaterally. GI: Abdomen is round non-distended, Bowel sounds present X 4 quads. Abd is soft and non tender X 4 quads. GI: Reports diarrhea, rectal bleeding. : No deficits noted. No signs and/or symptoms were reported regarding the genitourinary system. EENT: No deficits noted. No signs and/or symptoms were reported regarding the EENT system. Derm: Skin is intact, is healthy with good turgor, Skin is pink, warm \T\ dry. Musculoskeletal: Circulation, motion, and sensation intact. Capillary refill < 3 seconds. 08/09 00:03 Reassessment: Patient appears in no apparent distress at this time. Patient and/or ca1 family updated on plan of care and expected duration. Pain level reassessed. Patient is alert, oriented x 3, equal unlabored respirations, skin warm/dry/pink. 02:04 Reassessment: Patient appears in no apparent distress at this time. Patient and/or rv family updated on plan of care and expected duration. Pain level reassessed. Patient is alert, oriented x 3, equal unlabored respirations, skin warm/dry/pink. dr BATISTA talked to patient and discussed the result of the pathology exam with the patient and a family member. 02:25 Reassessment: Patient appears in no apparent distress at this time. Patient and/or rv family updated on plan of care and expected duration. Pain level reassessed. Patient is alert, oriented x 3, equal unlabored respirations, skin warm/dry/pink. 03:43 Reassessment: Patient appears in no apparent distress at this time. Patient and/or ed1 family updated on plan of care and expected duration. Pain level reassessed. Patient is alert, oriented x 3, equal unlabored respirations, skin warm/dry/pink. Patient states feeling better. Patient states symptoms have improved. Vital Signs: 08/08 23:11 BP 160 / 90; Pulse 82; Resp 16 S; Temp 98.2; Pulse Ox 98% on R/A; Weight 78.93 kg; ca1 Height 5 ft. 2 in. (157.48 cm); Pain 4/10; 08/09 00:03 BP 164 / 79; Pulse 81; Resp 17 S; Pulse Ox 98% on R/A; ca1 01:00 BP 161 / 83 RA Supine; Pulse 78; Resp 17 S; Pulse Ox 99% on R/A; rv 01:30 BP 163 / 83 RA Supine; Pulse 78; Resp 15 S; Pulse Ox 100% on R/A; rv 02:00 BP 164 / 94 RA Supine; Pulse 78; Resp 17 S; Pulse Ox 100% on R/A; rv 02:15 BP 166 / 90 RA Supine; Pulse 73; Resp 19 S; Pulse Ox 100% on R/A; rv 03:43 BP 167 / 77; Pulse 83; Resp 18; Temp 97.2(O); Pulse Ox 98% on R/A; Pain 2/10; ed1 08/08 23:11 Body Mass Index 31.83 (78.93 kg, 157.48 cm) ca1 ED Course: 08/08 22:52 Patient arrived in ED. do 23:05 Arm band placed on right wrist. ca1 23:11 Patient has correct armband on for positive identification. Bed in low position. Call ca1 light in reach. Side rails up X 1. Pulse ox on. NIBP on. Warm blanket given. 23:16 Minoo Morocho, RN is Primary Nurse. ca1 23:24 Terrell Carter MD is Attending Physician. rn 23:27 Triage completed. ca1 23:40 No provider procedures requiring assistance completed. Inserted saline lock: 18 gauge ca1 in right antecubital area, using aseptic technique. Blood collected. 08/09 00:22 Notified ED physician of a critical lab result(s). creat of 6.63 and gayle 6.1. fc 01:38 Shantanu Batista MD is Hospitalizing Provider. rn 02:04 Inserted saline lock: 22 gauge in left forearm, using aseptic technique. rv 02:25 Report given to THERESA. rv 04:46 Patient transferred, IV remains in place. intact, No redness/swelling at site. ed1 Administered Medications: 01:45 Drug: ProTONIX 40 mg Route: IVP; Site: right antecubital; rv 02:15 Follow up: Response: No adverse reaction ed1 01:47 Drug: ProTONIX 8 mg/hr Route: IV; Rate: 25 ml/hr; Site: right antecubital; rv 04:48 Follow up: IV Status: Infusion continued upon transfer ed1 Outcome: 01:38 Decision to Hospitalize by Provider. rn 03:22 ER care complete, transfer ordered by . rn 04:46 Transferred by ground EMS [facility]. to [facility], Transfer form ed1 completed. Note: Report called to Theresa Felton RN 04:46 Condition: stable 04:46 Discharge instructions given to patient, family, Instructed on the need for transfer, Demonstrated understanding of instructions. 04:48 Patient left the ED. ed1 Signatures: Ivonne Husain RN RN Terrell Carter MD MD rn Riggs, Erika, RN RN ed1 Elle Portillo Ronaldo, RN RN rv Minoo Morocho RN RN ca1 Corrections: (The following items were deleted from the chart) 08/08 23:31 23:30 BP 160 / 90; Pulse 82bpm; Resp 16bpm; Spontaneous; Pulse Ox 98% RA; Temp 98.2F; ca1 78.93 kg; Height 5 ft. 2 in.; BMI: 31.8; Pain 4/10; ca1 23:31 23:00 BP 160 / 90; Pulse 82bpm; Resp 16bpm; Spontaneous; Pulse Ox 98% RA; Temp 98.2F; ca1 78.93 kg; Height 5 ft. 2 in.; BMI: 31.8; Pain 4/10; ca1
--- NOTE | 2018-08-09 01:38 | EDPHYS ---
Physician Documentation [facility] Name: Yumiko Berumen Age: 62 yrs Sex: Female : 1955 Arrival Date: 08/08/2018 Time: 22:52 Bed 17 Private MD: ED Physician Terrell Carter HPI: 08/09 00:23 This 62 yrs old Female presents to ER via Ambulatory with complaints of GI rn Bleeding, Rectal Pain. 00:23 The patient presents to the emergency department with rectal bleeding, a small amount, rn melena, with multiple such episodes. Onset: The symptoms/episode began/occurred 10 day(s) ago. Abdominal pain: none is appreciated. Modifying factors: The symptoms are alleviated by nothing, the symptoms are aggravated by nothing. Severity of symptoms: At their worst the symptoms were mild in the emergency department the symptoms are unchanged. The patient has experienced a previous episode. Reports seen 2 months ago for GI bleeding, unknown outcome, states had colonoscopy and sent home without fully understanding what happened, stopped, not on blood thinners, now returns for 10 days of black stool and foul smell, no vomiting, + abd cramping but no pain.. Historical: - Allergies: 08/08 23:29 No Known Allergies; ca1 - Home Meds: 23:29 Metoprolol Tartrate Oral [Active]; ca1 - PMHx: 23:29 Diabetes - IDDM; Hyperlipidemia; Hypertension; ca1 - PSHx: 23:29 None; ca1 - Immunization history:: Adult Immunizations not up to date. - Social history:: Smoking status: Patient/guardian denies using tobacco. - Ebola Screening: : No symptoms or risks identified at this time. - Family history:: not pertinent. - Hospitalizations: : Patient was recently seen at. ROS: 08/09 00:23 Constitutional: Negative for fever, chills, and weight loss, Eyes: Negative for injury, rn pain, redness, and discharge, Cardiovascular: Negative for chest pain, palpitations, and edema, Respiratory: Negative for shortness of breath, cough, wheezing, and pleuritic chest pain, Abdomen/GI: + abd cramping and black stool MS/Extremity: Negative for injury and deformity, Skin: Negative for injury, rash, and discoloration, Neuro: + generalized weakness Exam: 00:23 Constitutional: This is a well developed, well nourished patient who is awake, alert, rn and in no acute distress. Head/Face: Normocephalic, atraumatic. ENT: MMM Cardiovascular: Regular rate and rhythm. No pulse deficits. Respiratory: Lungs have equal breath sounds bilaterally, clear to auscultation. No increased work of breathing, no retractions or nasal flaring. Abdomen/GI: soft, non-tender MS/ Extremity: Pulses equal, no cyanosis. Neurovascular intact. Full, normal range of motion. Equal circumference. Neuro: Awake and alert, GCS 15, oriented to person, place, time, and situation. Cranial nerves II-XII grossly intact. Motor strength 5/5 in all extremities. Sensory grossly intact. Vital Signs: 08/08 23:11 BP 160 / 90; Pulse 82; Resp 16 S; Temp 98.2; Pulse Ox 98% on R/A; Weight 78.93 kg; ca1 Height 5 ft. 2 in. (157.48 cm); Pain 4/10; 08/09 00:03 BP 164 / 79; Pulse 81; Resp 17 S; Pulse Ox 98% on R/A; ca1 01:00 BP 161 / 83 RA Supine; Pulse 78; Resp 17 S; Pulse Ox 99% on R/A; rv 01:30 BP 163 / 83 RA Supine; Pulse 78; Resp 15 S; Pulse Ox 100% on R/A; rv 02:00 BP 164 / 94 RA Supine; Pulse 78; Resp 17 S; Pulse Ox 100% on R/A; rv 02:15 BP 166 / 90 RA Supine; Pulse 73; Resp 19 S; Pulse Ox 100% on R/A; rv 03:43 BP 167 / 77; Pulse 83; Resp 18; Temp 97.2(O); Pulse Ox 98% on R/A; Pain 2/10; ed1 08/08 23:11 Body Mass Index 31.83 (78.93 kg, 157.48 cm) ca1 MDM: 08/08 23:24 Patient medically screened. rn 08/09 01:35 Differential diagnosis: gastritis, PUD, gastric ulcer, upper GI bleed. Data reviewed: rn vital signs, nurses notes, lab test result(s), and as a result, I will admit patient. Counseling: I had a detailed discussion with the patient and/or guardian regarding: the historical points, exam findings, and any diagnostic results supporting the discharge/admit diagnosis, lab results, the need for further work-up and treatment in the hospital. Response to treatment: the patient's symptoms have mildly improved after treatment, and as a result, I will admit patient. Admission orders: after a detailed discussion of the patient's condition and case, the admit orders are written by me. ED course: Pt stable, no further bleeding/bowel movements here, hemoglobin 8 but likely combination of CKD and UGIB. Has known CKD and last time anemia was 3. She and family state that sent to [facility] last time for rectal mass but [facility] told them was not cancer and no surgery performed. No abd pain so ct abdomen not performed. Still no abd pain on reeval. Will admit to Dr. Batista, GI nutrition manager today, Wednesday 08/09, and does not need emergent scope at this time.. 02:35 ED course: Concern is that we do not have colorectal surgery available for rectal mass rn that patient states was not addressed last admission at [facility], still bleeding, anemic, after speaking with Dr. Batista and Dr. Jones, will attempt transfer to [facility] for higher level of care and colorectal surgery consult. . 08/08 23:55 Order name: Basic Metabolic Panel; Complete Time: 01:23 EDMT 08/08 23:55 Order name: Liver (Hepatic) Function; Complete Time: 01: EDMT 08/08 23:55 Order name: Lipase; Complete Time: 01:23 EDMT 08/08 23:55 Order name: CBC with Automated Diff; Complete Time: 01:23 EDMT 08/08 23:55 Order name: Protime (+INR); Complete Time: 01:23 EDMT 08/08 23:55 Order name: PTT, Activated Partial Thromb; Complete Time: 01:23 EDMT 08/08 23:55 Order name: Type and Screen ED08/08 23:32 Order name: IV Saline Lock; Complete Time: 23:51 rn 08/08 23:32 Order name: Labs collected and sent; Complete Time: 23:51 rn Administered Medications: 01:45 Drug: ProTONIX 40 mg Route: IVP; Site: right antecubital; rv 02:15 Follow up: Response: No adverse reaction ed1 01:47 Drug: ProTONIX 8 mg/hr Route: IV; Rate: 25 ml/hr; Site: right antecubital; rv 04:48 Follow up: IV Status: Infusion continued upon transfer ed1 Disposition: 08/09/18 03:22 Transfer ordered to [facility]. Diagnosis are Melena, Gastrointestinal bleeding, Chronic kidney disease, unspecified. - Reason for transfer: Higher level of care. - Accepting physician is Dr. Yan. - Condition is Stable. - Problem is an ongoing problem. - Symptoms are unchanged. Signatures: Dispatcher [employer] EDMS Terrell Carter MD MD rn Theresa Douglas RN RN ed1 Oli Mayes RN RN rv Minoo Morocho RN RN ca1 Corrections: (The following items were deleted from the chart) 03:21 01:38 Hospitalization Ordered by Shantanu Batista MD for Inpatient Admission. Preliminary rn diagnosis is Melena; Chronic kidney disease (CKD); Hypocalcemia. Bed requested for Telemetry/MedSurg (Inpatient). Status is Inpatient Admission. Condition is Stable. Problem is an ongoing problem. Symptoms have improved. UTI on Admission? No. rn 04:48 03:22 08/09/2018 03:22 Transfer ordered to [facility]. Diagnosis is ed1 Melena; Gastrointestinal bleeding; Chronic kidney disease, unspecified. Reason for transfer: Higher level of care. Accepting physician is Dr. Yan. Condition is Stable. Problem is an ongoing problem. Symptoms are unchanged. rn
[2018-08-09] MEDS ORDERED: PANTOPRAZOLE 40 MG INJ ONE (01:44)
[2018-08-09] MEDS ORDERED: NA CHLORIDE 0.9% 500 ML ONE (01:45)
--- NOTE | 2018-08-09 06:08 | P.CNS ---
Date of Consult: 08/09/18 Reason for Consult: GIB Requesting Physician: Terrell Carter Chief Complaint: GIB History of Present Illness: Patient is a 62-year-old female with a history of GI bleed. She was found to have a concerning rectal lesion. 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 She was sent to [facility] last time she was in the hospital however, on this admission will speak with them because according to daughter they did not get colonoscopy results for pathology results and they sent her home. In light of the fact that we have these results she needs to see a colorectal surgery as surgery is very important to be done as soon as possible. Patient also is having bleeding from this area. Patient will be admitted to [facility]. Will initiate transfer at this time. Hopefully she will get the care she needs in the specialist she needs while she is at [facility]. Allergies No Known Allergies Allergy (Unverified 06/02/18 21:05) Home Medications: Aspirin [Aspirin EC 81 MG] 81 mg PO DAILY 06/03/18 Insulin Glargine,Hum.rec.anlog [Lantus] 10 unit SQ BEDTIME 06/03/18 Metoprolol Tartrate 100 mg PO BID 06/03/18 Pravastatin Sodium 40 mg PO BEDTIME 06/03/18 Terazosin HCl 5 mg PO BID 06/03/18 - Past Medical/Surgical History Diabetic: Yes -: IDDM -: HTN -: hyperlipidemia -: Hysterectomy - Family History Mother Medical History: Hypertension, Kidney disease Father Medical History: Diabetes, Cancer - Social History Alcohol use: No CD- Drugs: No Caffeine use: Yes Review of Systems 10-point ROS is otherwise unremarkable Physical Examination Temp Pulse Resp BP Pulse Ox 97.2 F 83 18 167/77 H 08/09/18 03:43 08/09/18 03:43 08/09/18 03:43 08/09/18 03:43 General: Alert, In no apparent distress, Oriented x3 HEENT: Atraumatic, PERRLA, Mucous membr. moist/pink, EOMI, Sclerae nonicteric Neck: Supple, 2+ carotid pulse no bruit, No LAD, Without JVD or thyroid abnormality Respiratory: Clear to auscultation bilaterally, Normal air movement Cardiovascular: Regular rate/rhythm, Normal S1 S2 Gastrointestinal: Normal bowel sounds, Soft and benign, Non-distended, No tenderness Musculoskeletal: No clubbing, No swelling, No tenderness Integumentary: No rashes Neurological: Normal gait, Normal speech, Normal tone, Sensation intact, Cranial nerves 3-12 intact, Normal affect Lymphatics: No axilla or inguinal lymphadenopathy Laboratory Data (last 24 hrs) 08/08/18 23:45: PT 11.1, INR 0.94, APTT 29.0 08/08/18 23:45: WBC 9.7, Hgb 8.2 L, Hct 24.9 L, Plt Count 227 08/08/18 23:45: Sodium 148 H, Potassium 4.7, BUN 58 H, Creatinine 6.63 H*, Glucose 146 H, Total Bilirubin 0.2, AST 23, ALT 25, Alkaline Phosphatase 109, Lipase 531 H 08/08/18 23:32: PT Cancelled, INR Cancelled, APTT Cancelled 08/08/18 23:32: WBC Cancelled, Hgb Cancelled, Hct Cancelled, Plt Count Cancelled 08/08/18 23:32: Sodium Cancelled, Potassium Cancelled, BUN Cancelled, Creatinine Cancelled, Glucose Cancelled, Total Bilirubin Cancelled, AST Cancelled, ALT Cancelled, Alkaline Phosphatase Cancelled, Lipase Cancelled - Problems (1) Adenocarcinoma Status: Acute (2) Acute blood loss anemia Onset Date: 06/03/18 Status: Acute (3) Diabetes mellitus Onset Date: 06/03/18 Status: Acute Qualifiers: (4) GIB (gastrointestinal bleeding) Onset Date: 06/03/18 Status: Acute Qualifiers: (5) HTN (hypertension) Onset Date: 06/03/18 Status: Acute Qualifiers: (6) Rectal bleeding Status: Acute (7) Rectal mass Status: Acute Conclusions/ Impression: Plan: 1. Initiate transfer to higher level of care for colorectal surgeon 2. Patient may need hemodialysis; will consult nephrology 3. monitor H&H 4. Will try transfuse 2 units of blood prior to surgery 5. pain control 6. IV hydration 7. Monitor labs and electrolytes 8. GI and DVT prophylaxis Critical Care: Yes Time Spent Managing Pts care (In Minutes): 50
== END 2018-08-09 04:48 | disposition short-term general hospital (02) ==
LOC: ER 22:50
DX: K92.2 Gastrointestinal hemorrhage, unspecified (principal); E11.22 Type 2 diabetes mellitus with diabetic chronic kidney disease; I12.9 Hypertensive chronic kidney disease with stage 1 through stage 4 chronic kidney disease, or unspecified chronic kidney disease; N18.9 Chronic kidney disease, unspecified; E78.5 Hyperlipidemia, unspecified; K92.1 Melena; Z79.4 Long term (current) use of insulin
CPT/HCPCS: 36415; 80048; 80076; 83690; 85025; 85610; 85730; 86850; 86900; 86901; 96365; 96366; 99285; C9113